=== PATIENT | male | born 1950 | race Caucasian/White ===

== ENCOUNTER 2017-05-30 12:18 | Inpatient (IN) | payer MEDICARE, MEDICAID ==
--- NOTE | 2017-05-30 14:35 | ED Physician Chart ---
ED Chief Complaint/HPI - Patient Information Date Seen:: 05/30/17 Time Seen:: 14:35 Chief Complaint:: AGGITATION IN NURSING FACILITY X 2 DAYS, STRIKING OUT AT OTHER PATIENTS AND History of Present Illness:: THE PATIENT IS CONFUSED, AGITATED AND UNABLE TO PROVIDE RELIABLE HISTORY OF PRESENT ILLNESS. THE PATIENT WAS SENT TO THE EMERGENCY DEPARTMENT FOR CLEARANCE TO ADMIT TO PSYCHIATRIC. IN ADDITION TO BEING CONFUSED THE PATIENT WAS AGITATED AND STRIKING OUT AT OTHER PATIENTS. HE DENIES ANY HEADACHES. HE HAS BEEN HAVING LIGHT HEADEDNESS. 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 IENVIRONMENT. HE HAS NOT NOTICED ANY NOXIOUS FUMES OR SMELLS INITIAL VITAL SIGNS SHOWED ABP OF 64/P6 IG RORR 149 TEMP OF97.7 AN HE DENIES USE OF ETOH, HE DENIES USE OF TOBACO AND STREET DRUGS. Allergies:: Allergies Allergy/AdvReac Type Severity Reaction Status Date / Time No Known Allergies Allergy Verified 05/30/17 13:28 Vitals:: Vital Signs - 8 hr 05/30/17 13:29 Temp 97.7 F HR 58 RR 16 BP 164/96 O2 Sat % 97 ED Review of Systems - Review of Systems General/Constitutional: No fever, No chills, No weakness, No diaphoresis, Other (, DOUBLE VISION, DIFFICULTY BREATHING, COUGH, WHEEZING, NAUSEA, VOMITING. THE PATIENT FURTHER DENIES ANY ABDOMINAL PAIN AND VOMITING OR DIARRHEA. PATIENT HAS NO DYSURIA URINARY FREQUENCY OR HEMATURIA. PATIENT DENIES DEPRESSION AND SUICIDAL IDEATION. PATIENT DENIES SYNCOPE FOCAL WEAKNESS AND DIZZINESS.) Skin: No skin lesions, No rash, No bruising Head: No headache Eyes: No loss of vision, No pain ENT: No earache, No nasal drainage, No sore throat, No tinnitus Neck: No neck pain, No swelling, No thyromegaly, No stiffness, No mass noted Cardio Vascular: No chest pain, No palpitations, No PND, No orthopnea, No edema Pulmonary: No SOB, No cough, No sputum, No wheezing GI: Nausea, No hematemesis G/U: No frequency, No hematuria Musculoskeletal: No bone or joint pain, No back pain, No muscle pain Endocrine: No polyuria, No polydipsia Psychiatric: No suicidal ideation, No homicidal ideation Hematopoietic: No bruising, No lymphadenopathy Allergic/Immuno: No urticaria, No angioedema Neurological: No syncope, No focal symptoms, No weakness, No paresthesia, No headache, No seizure, No dizziness, No confusion, No vertigo ED Past Medical History - Past Medical History Past Medical History: No significant medical hx ( ), HTN, Dyslipidemia Social History: Smoker Family Medical History - Family Member Mother History Unknown: Yes Father History Unknown: Yes ED Physical Exam - Physical Examination General/Constitutional: Awake Head: Atraumatic Eyes: Lids, conjuctiva normal, PERRL, EOMI Skin: Nl inspection, No rash, No skin lesions, No ecchymosis, Well hydrated, No lymphadenopathy ENMT: External ears, nose nl, Nasal exam nl, Lips, teeth, gums nl Neck: Nontender, Full ROM w/o pain, No JVD, No nuchal rigidity, No bruit, No mass, No stridor Respiratory: Nl effort/Exclusion, Clear to Auscultation, No Wheeze/Rhonchi/Rales Cardio Vascular: RRR, No murmur, gallop, rubs, NL S1 S2 GI: No tenderness/rebounding/guarding, No organomegaly, No hernia, Normal BS's, Nondistended, No mass/bruits, No McBurney tenderness : No CVA tenderness Extremities: No tenderness or effusion, Full ROM, normal strength in all extremities, No edema, Normal digits & nails Neuro/Psych: Alert/oriented, DTR's symmetric, Normal sensory exam, Normal motor strength, Judgement/insight normal, Mood normal, Normal gait, No focal deficits Misc: Normal back, No paraspinal tenderness ED Labs/Radiology/EKG Results - Lab Results Results: Laboratory Tests 05/30/17 05/30/17 05/30/17 15:00 15:00 15:00 WBC 8.1 RBC 3.60 L Hgb 11.1 L Hct 33.5 L MCV 93.1 MCH 30.7 MCHC Differential 33.0 RDW 12.4 Plt Count 218 MPV 7.2 Neutrophils % 53.2 Lymphocytes % 38.7 Monocytes % 5.2 Eosinophils % 2.2 Basophils % 0.7 Sodium 131 L Potassium 4.3 Chloride 102 Carbon Dioxide 25.6 Anion Gap 7.7 BUN 22 Creatinine 0.8 Est GFR ( Amer) > 60.0 Est GFR (Non-Af Amer) > 60.0 BUN/Creatinine Ratio 27.5 Glucose 87 Calcium 9.6 Total Bilirubin 0.4 AST 23 ALT 14 Alkaline Phosphatase 53 Total Protein 7.5 Albumin 4.4 Globulin 3.1 Albumin/Globulin Ratio 1.4 Urine Source RANDOM Urine Color YELLOW LABORATORY STUDIES: SERUM ELECTROLYTES SHOWING MILD HYPONATREMIA WITH THE SODIUM OF 131. THERE IS NO ABNORMALITY OF THE OF POTASSIUM AND BUN AND CREATININE ARE WITHIN NORMAL PARAMETERS. LIVER FUNCTION STUDIES WERE ALL WITHIN NORMAL PARAMETERS. Urine Clarity CLEAR Urine pH 6.0 Ur Specific [place] 1.020 Urine Protein NEGATIVE Urine Glucose (UA) NEGATIVE Urine Ketones NEGATIVE Urine Blood NEGATIVE Urine Nitrate NEGATIVE Urine Bilirubin NEGATIVE Urine Urobilinogen 0.2 Ur Leukocyte Esterase NEGATIVE Urine RBC 0-2 H Urine WBC 0-2 Ur Epithelial Cells OCCASIONAL Urine Bacteria NONE SEEN ED Assessment - Assessment General Assessment: CASE SUMMARY: ALL CAPS 67-YEAR-OLD MALE . PRESENTS FOR EVALUATION AGGRESSIVE AND HOSTILE BEHAVIOR FOR OTHER PATIENTS. PATIENT WILL BE ADMITTED BY DR. Brittany KATE FOR FURTHER DIAGNOSTIC EVALUATION AND TREATMENT IS INDICATED. ADMITTED IN STABLE CONDITION DDX FOR AGRESSIVE BEHAVIOR . PSYCHOSIS NOS ED Septic Shock - . Is Septic Shock (SBP<90, OR Lactate>4 mmol\L) present?: No - <6hrs of presentation: Vital Signs: Vital Signs - 8 hr 05/30/17 13:29 Temp 97.7 F HR 58 RR 16 BP 164/96 O2 Sat % 97 ED Reassessment (Disposition) - Reassessment Reassessment Condition:: Unchanged - Diagnosis Diagnosis:: MEDICALLY CLEAR TO ADMIT TO [facility]. Diagnosis: psychosis NOS ED Discharge Plan - Patient Disposition Admit/Discharge/Transfer: Other Care w/in this hosp Condition at Disposition: Stable
[2017-05-30 15:05] LABS: % BASOPHILS 0.7 % (0.0-2.0); % EOSINOPHILS 2.2 % (0.0-5.0); % LYMPHOCYTES 38.7 % (20.0-50.0); % MONOCYTES 5.2 % (2.0-10.0); % NEUTROPHILS 53.2 % (40.0-80.0); BASOPHILE ABSOLUTE 0.1 Th/cumm (0-0.2); EOSINOPHILE ABSOLUTE 0.2 Th/cmm (0.1-0.4); HEMATOCRIT 33.5 % (41.0-60); HEMOGLOBIN 11.1 gm/dL (12-16); LYMPHOCYTE ABSOLUTE 3.1 Th/cmm (1.5-3.0); MEAN CELL VOLUME 93.1 fl (80-99); MEAN CORPUSCULAR HEMOGLOBIN 30.7 pg (27.0-31.0); MEAN PLATELET VOLUME 7.2 fl; MONOCYTE ABSOLUTE 0.4 Th/cmm (0.3-1.0); NEUTROPHILE ABSOLUTE 4.3 Th/cmm (1.8-8.0); PLATELET COUNT 218 Th/cmm (150-400); RED CELL DISTRIBUTION WIDTH 12.4 % (11.5-20.0); WHITE BLOOD COUNT 8.1 Th/cmm (4.8-10.8)
[2017-05-30 15:21] LABS: ALB/GLOB RATIO 1.4 (1.0-1.8); ALBUMIN 4.4 gm/dL (4.2-5.5); ALKALINE PHOSPHATASE 53 U/L (34-104); ANION GAP 7.7 (7.0-16.0); BILIRUBIN,TOTAL 0.4 mg/dL (0.3-1.0); BUN - UREA NITROGEN 22 mg/dL (7-25); CALCIUM SERUM 9.6 mg/dL (8.6-10.3); CARBON DIOXIDE 25.6 mEq/L (21.0-31.0); CHLORIDE 102 mEq/L (98-107); CREATININE - SERUM 0.8 mg/dL (0.7-1.3); GFR AFRICAN-AMERICAN > 60.0 ml/min (>90); GFR NON AFRICAN-AMERICAN > 60.0 ml/min; GLUCOSE 87 mg/dL (70-105); POTASSIUM SERUM 4.3 mEq/L (3.5-5.1); SGOT 23 U/L (13-39); SGPT/ALT 14 U/L (7-52); SODIUM SERUM 131 mEq/L (136-145); TOTAL PROTEIN,SERUM 7.5 gm/dL (6.0-8.3)
[2017-05-30 15:29] LABS: URINE MICROSCOPIC INDICATED? YES; URINE SOURCE RANDOM
[2017-05-30 15:30] LABS: URINE BILIRUBIN NEGATIVE (NEGATIVE); URINE BLOOD NEGATIVE (NEGATIVE); URINE GLUCOSE (UA) NEGATIVE (NEGATIVE); URINE KETONE NEGATIVE (NEGATIVE); URINE LEUKOCYTE ESTERASE NEGATIVE (NEGATIVE); URINE NITRATE NEGATIVE (NEGATIVE); URINE PROTEIN NEGATIVE (NEGATIVE); URINE UROBILINOGEN 0.2 E.U./dL (0.2 - 1.0)
[2017-05-30 15:39] LABS: URINE CLARITY CLEAR (CLEAR); URINE COLOR YELLOW
[2017-05-30 15:40] LABS: URINE BACTERIA NONE SEEN /hpf (NONE SEEN); URINE EPITHELIAL CELLS OCCASIONAL /lpf (FEW); URINE RBC 0-2 /hpf (0-5); URINE WBC 0-2 /hpf (0-5)
[2017-05-30 21:11] VITALS: BP 120/75
[2017-05-30] MEDS ORDERED: Maalox 30 mL Cup PO PRN (21:12)
[2017-05-30] MEDS ORDERED: Magnesium Hydroxide (MOM) 30 mL UDC PO PRN (21:12)
[2017-05-31] MEDS: Multivitamin Tab PO SCH (09:00)
[2017-05-31] MEDS ORDERED: Levothyroxine 0.125 Mg Tab PO SCH ×2 (11:30)
[2017-05-31] MEDS: Levothyroxine 0.05 Mg Tab PO SCH (11:35)
--- NOTE | 2017-05-31 16:25 | History and Physical ---
History of Present Illness - HPI Chief Complaint: agitation HPI: This is a 67 [place]ik[place] old male who is a long term resident admitted to the [facility] unit due to agitation. Vital Signs: Last Vital Signs Temp 98.4 F 05/31/17 06:09 Pulse 56 05/31/17 09:00 Resp 18 05/31/17 06:09 BP 128/58 05/31/17 09:00 Pulse Ox 98 05/31/17 06:09 Past Medical History Other History: htn hypothyroidism psychosis Family Medical History - Family Member Mother History Unknown: Yes Father History Unknown: Yes Social History Smoke: No Alcohol: None Drugs: None Lives: [facility] - Medications Home Medications: Home Medication Medication Instructions Recorded Type Acetaminophen [Tylenol] 650 mg PO Q4HR PRN 05/30/17 History Bicalutamide 50 mg PO DAILY 05/30/17 History Docusate Sodium [Colace] 100 mg PO BID 05/30/17 History Levothyroxine [Synthroid] 0.125 mg PO 1130 05/30/17 History Neomycin Sulfate [Neomycin] 500 mg PO Q6H 05/30/17 History Potassium Chloride 1 tab PO DAILY 05/30/17 History Travoprost [Travatan Z] 1 drop OP HS 05/30/17 History Valsartan 80 mg PO Q12H 05/30/17 History - Allergies Allergies/Adverse Reactions: Allergies Allergy/AdvReac Type Severity Reaction Status Date / Time No Known Allergies Allergy Verified 05/30/17 13:28 Review of Systems - Review of Systems Constitutional: Report: No Significant Eyes: Report: No Significant Respiratory: Report: No Significant Cardiovascular: Report: Chest Pain Neurological: Report: No Significant Physical Exam - Physical Exam HEENT: Report: Ears Nose Throat within normal limits Neck: Report: Within normal limits Cardiovascular Systems: Report: +s1/s2 noted, Regular, Rate and Rhythm Abdomen: Report: Non-tender to palpation Back: Report: Inspection of back is within normal limits. Extremities: Report: Non-tender to palpation. Skin: Report: Color of skin is within normal limits - Assessment Assessment: Current Active Problems Problem Status Onset INCREASED AGITATION AND COMBATIVENESS Acute hypothyroidism htn - Plan Plan: continue current orders
[2017-05-31] MEDS ORDERED: Non-Formulary Item 1 EA (Travoprost [Travatan Z] 1 DROP) OP SCH (21:00)
--- NOTE | 2017-06-01 03:47 | Psychosocial Evaluation ---
DATE OF SERVICE: 05/31/2017 PSYCHIATRIC INITIAL EVALUATION AND MENTAL STATUS EXAM PATIENT'S AGE: 67. SEX: Male. PHYSICIAN: Jean Claude King M.D. CHIEF COMPLAINT: Severe agitation and irritability. HISTORY OF PRESENT ILLNESS: The patient is a 67-year-old male who was transferred from [facility] because of aggressive behavior. The patient has been hitting and striking at staff and other patients. Also, has not been able to follow any of staff directions. The patient also has been in angry and in irritable moods. Also, has been suspicious and has been paranoid. PAST PSYCHIATRIC HISTORY: The patient has history of dementia with psychosis. PAST MEDICAL HISTORY: The patient has history of cirrhosis of the liver as well as renal failure and history of alcoholism. SOCIAL HISTORY: The patient lives in [facility]. No known information about his family. No known legal issues or abuse issues. ALLERGIES: No known allergies. MENTAL STATUS EXAMINATION: The patient appears older than his stated age. Angry. Irritable mood. Disheveled. Thought processes are circumstantial with flight of ideas. The patient denies any auditory or visual hallucinations, but seems to be responding to stimuli. The patient denies any thoughts of suicide or homicide. The patient is alert and oriented to situation, but not to place or person or date. Impaired immediate and recent memory, but intact remote memory and he remembered his date. Poor insight and poor judgment. ASSESSMENT: PRIMARY DIAGNOSIS: Unspecified psychosis. SECONDARY DIAGNOSIS: Alzheimer disease, moderate, with psychotic features. TREATMENT PLAN: Monitor patient's behavior closely. We will start individual as well as milieu psychotherapy. We will start Seroquel in a dose of 12.5 mg twice a day and will adjust the dose. ESTIMATED LENGTH OF STAY: 5-7 days. PATIENT'S STRENGTHS AND WEAKNESSES: The patient's strength is not clear at this time except he has a supportive staff in [facility]. Weakness is his poor impulse control. AFTER DISCHARGE PLAN: The patient will return to [facility] with plans for outpatient treatment and followup. CRITERIA FOR DISCHARGE: Better impulse control and stabilizing psychotropic medications. JOB# [id number]
[2017-06-01] MEDS: Multivitamin Tab PO SCH (08:06)
--- NOTE | 2017-06-01 09:32 | General Progress Note ---
Subjective - Review of Systems Events since last encounter: patient irritable agitated in no distress Objective - Results Result Diagrams: 05/30/17 15:00 05/30/17 15:00 Recent Labs: Laboratory Last Values WBC 8.1 Th/cmm (4.8-10.8) 05/30/17 15:00 RBC 3.60 Mil/cmm (3.80-5.80) L 05/30/17 15:00 Hgb 11.1 gm/dL (12-16) L 05/30/17 15:00 Hct 33.5 % (41.0-60) L 05/30/17 15:00 MCV 93.1 fl (80-99) 05/30/17 15:00 MCH 30.7 pg (27.0-31.0) 05/30/17 15:00 MCHC Differential 33.0 pg (28.0-36.0) 05/30/17 15:00 RDW 12.4 % (11.5-20.0) 05/30/17 15:00 Plt Count 218 Th/cmm (150-400) 05/30/17 15:00 MPV 7.2 fl 05/30/17 15:00 Neutrophils % 53.2 % (40.0-80.0) 05/30/17 15:00 Lymphocytes % 38.7 % (20.0-50.0) 05/30/17 15:00 Monocytes % 5.2 % (2.0-10.0) 05/30/17 15:00 Eosinophils % 2.2 % (0.0-5.0) 05/30/17 15:00 Basophils % 0.7 % (0.0-2.0) 05/30/17 15:00 Sodium 131 mEq/L (136-145) L 05/30/17 15:00 Potassium 4.3 mEq/L (3.5-5.1) 05/30/17 15:00 Chloride 102 mEq/L (98-107) 05/30/17 15:00 Carbon Dioxide 25.6 mEq/L (21.0-31.0) 05/30/17 15:00 Anion Gap 7.7 (7.0-16.0) 05/30/17 15:00 BUN 22 mg/dL (7-25) 05/30/17 15:00 Creatinine 0.8 mg/dL (0.7-1.3) 05/30/17 15:00 Est GFR ( Amer) > 60.0 ml/min (>90) 05/30/17 15:00 Est GFR (Non-Af Amer) > 60.0 ml/min 05/30/17 15:00 BUN/Creatinine Ratio 27.5 05/30/17 15:00 Glucose 87 mg/dL (70-105) 05/30/17 15:00 Calcium 9.6 mg/dL (8.6-10.3) 05/30/17 15:00 Total Bilirubin 0.4 mg/dL (0.3-1.0) 05/30/17 15:00 AST 23 U/L (13-39) 05/30/17 15:00 ALT 14 U/L (7-52) 05/30/17 15:00 Alkaline Phosphatase 53 U/L (34-104) 05/30/17 15:00 Total Protein 7.5 gm/dL (6.0-8.3) 05/30/17 15:00 Albumin 4.4 gm/dL (4.2-5.5) 05/30/17 15:00 Globulin 3.1 gm/dL 05/30/17 15:00 Albumin/Globulin Ratio 1.4 (1.0-1.8) 05/30/17 15:00 Urine Source RANDOM 05/30/17 15:00 Urine Color YELLOW 05/30/17 15:00 Urine Clarity CLEAR (CLEAR) 05/30/17 15:00 Urine pH 6.0 (4.6 - 8.0) 05/30/17 15:00 Ur Specific [place] 1.020 (1.005-1.030) 05/30/17 15:00 Urine Protein NEGATIVE mg/dL (NEGATIVE) 05/30/17 15:00 Urine Glucose (UA) NEGATIVE mg/dL (NEGATIVE) 05/30/17 15:00 Urine Ketones NEGATIVE mg/dL (NEGATIVE) 05/30/17 15:00 Urine Blood NEGATIVE (NEGATIVE) 05/30/17 15:00 Urine Nitrate NEGATIVE (NEGATIVE) 05/30/17 15:00 Urine Bilirubin NEGATIVE (NEGATIVE) 05/30/17 15:00 Urine Urobilinogen 0.2 E.U./dL (0.2 - 1.0) 05/30/17 15:00 Ur Leukocyte Esterase NEGATIVE (NEGATIVE) 05/30/17 15:00 Urine RBC 0-2 /hpf (0-5) H 05/30/17 15:00 Urine WBC 0-2 /hpf (0-5) 05/30/17 15:00 Ur Epithelial Cells OCCASIONAL /lpf (FEW) 05/30/17 15:00 Urine Bacteria NONE SEEN /hpf (NONE SEEN) 05/30/17 15:00 - Physical Exam Vitals and I&O: Vital Signs Temp 98.1 F 06/01/17 05:48 Pulse 65 06/01/17 05:48 Resp 20 06/01/17 05:48 BP 137/66 06/01/17 05:48 Pulse Ox 99 06/01/17 05:48 Intake & Output 05/31/17 06/01/17 06/01/17 18:59 06:59 18:59 Intake Total 240 Balance 240 Weight (lbs) 68.039 kg Intake: Oral 240 Other: # Voids 3 # Bowel Movements 0 Active Medications: Current Medications Acetaminophen (Tylenol) 650 mg PO Q4HR PRN PRN Reason: Mild Pain / Temp above 100 Stop: 07/29/17 21:11 Al Hydrox/Mg Hydrox/Simethicone (Maalox) 30 ml PO Q4HR PRN PRN Reason: GI DISTRESS Stop: 07/29/17 21:11 Bicalutamide (Casodex) 50 mg PO DAILY [facility] PRN Reason: Protocol Stop: 07/30/17 11:59 Last Admin: 05/31/17 14:39 Dose: Not Given Docusate Sodium (Colace) 100 mg PO BID [facility] Stop: 07/30/17 08:59 Last Admin: 06/01/17 08:06 Dose: 100 mg Latanoprost (Xalatan 0.005% Ophth Soln) 1 drop EACH EYE HS [facility] Stop: 07/30/17 20:59 Last Admin: 05/31/17 21:00 Dose: Not Given Levothyroxine Sodium (Synthroid) 0.125 mg PO 1130 [facility] Stop: 07/30/17 11:29 Last Admin: 05/31/17 11:35 Dose: 0.125 mg Lorazepam (Ativan) 0.5 mg PO Q4HR PRN; Protocol PRN Reason: anxiety/agitation Stop: 06/29/17 21:11 Last Admin: 06/01/17 06:46 Dose: 0.5 mg Magnesium Hydroxide (Milk Of Magnesia) 30 ml PO HS PRN PRN Reason: Constipation Multivitamins/Vitamin C (Theragran) 1 tab PO DAILY [facility] Stop: 07/30/17 08:59 Last Admin: 06/01/17 08:06 Dose: 1 tab Neomycin Sulfate (Neomycin) 500 mg PO Q6H [facility] Stop: 07/29/17 21:29 Last Admin: 06/01/17 08:44 Dose: 500 mg Quetiapine Fumarate (Seroquel) 25 mg PO BID [facility] PRN Reason: Protocol Stop: 07/31/17 06:23 Last Admin: 06/01/17 08:05 Dose: 25 mg Valsartan (Diovan) 80 mg PO Q12H [facility] Stop: 07/29/17 21:29 Last Admin: 05/31/17 22:02 Dose: 80 mg Zolpidem Tartrate (Ambien) 5 mg PO HS PRN PRN Reason: Insomnia Stop: 07/29/17 21:11 Assessment/Plan - Problem List Patient Problems: All Active Problems INCREASED AGITATION AND COMBATIVENESS (Acute)
--- NOTE | 2017-06-01 11:16 | Progress Notes ---
DATE: 06/01/2017 SUBJECTIVE: Chart reviewed and the patient interviewed. I also discussed the patient's condition with the staff and reviewed records and labs. "What do you want." The patient is severely angry and in irritable mood and he also seems to be slightly confused. The patient also later on followed me and he did not want to attack me, but he kept asking me what do you want and when I tried to carry on conversation, he did not want to answer any of my questions and he continued to be in angry and restless mood. The patient also seems to be suspicious and severely paranoid. Also, personal hygiene is still poor. Otherwise, the patient did take his psychotropic medications and the patient denied any side effects of medications and no reports of any side effects of Seroquel. The patient is on Seroquel in a dose of 12.5 mg twice a day. ASSESSMENT: The patient is still agitated and psychotic. TREATMENT PLAN: We will continue monitoring his behavior and his condition closely. Also, continue to work on his poor impulse control and irritability and continue to follow up. JOB# [id number]
[2017-06-01] MEDS: Levothyroxine 0.05 Mg Tab PO SCH (12:00)
--- NOTE | 2017-06-02 08:43 | General Progress Note ---
Subjective - Review of Systems Events since last encounter: no change Objective - Results Result Diagrams: 05/30/17 15:00 05/30/17 15:00 Recent Labs: Laboratory Last Values WBC 8.1 Th/cmm (4.8-10.8) 05/30/17 15:00 RBC 3.60 Mil/cmm (3.80-5.80) L 05/30/17 15:00 Hgb 11.1 gm/dL (12-16) L 05/30/17 15:00 Hct 33.5 % (41.0-60) L 05/30/17 15:00 MCV 93.1 fl (80-99) 05/30/17 15:00 MCH 30.7 pg (27.0-31.0) 05/30/17 15:00 MCHC Differential 33.0 pg (28.0-36.0) 05/30/17 15:00 RDW 12.4 % (11.5-20.0) 05/30/17 15:00 Plt Count 218 Th/cmm (150-400) 05/30/17 15:00 MPV 7.2 fl 05/30/17 15:00 Neutrophils % 53.2 % (40.0-80.0) 05/30/17 15:00 Lymphocytes % 38.7 % (20.0-50.0) 05/30/17 15:00 Monocytes % 5.2 % (2.0-10.0) 05/30/17 15:00 Eosinophils % 2.2 % (0.0-5.0) 05/30/17 15:00 Basophils % 0.7 % (0.0-2.0) 05/30/17 15:00 Sodium 131 mEq/L (136-145) L 05/30/17 15:00 Potassium 4.3 mEq/L (3.5-5.1) 05/30/17 15:00 Chloride 102 mEq/L (98-107) 05/30/17 15:00 Carbon Dioxide 25.6 mEq/L (21.0-31.0) 05/30/17 15:00 Anion Gap 7.7 (7.0-16.0) 05/30/17 15:00 BUN 22 mg/dL (7-25) 05/30/17 15:00 Creatinine 0.8 mg/dL (0.7-1.3) 05/30/17 15:00 Est GFR ( Amer) > 60.0 ml/min (>90) 05/30/17 15:00 Est GFR (Non-Af Amer) > 60.0 ml/min 05/30/17 15:00 BUN/Creatinine Ratio 27.5 05/30/17 15:00 Glucose 87 mg/dL (70-105) 05/30/17 15:00 Calcium 9.6 mg/dL (8.6-10.3) 05/30/17 15:00 Total Bilirubin 0.4 mg/dL (0.3-1.0) 05/30/17 15:00 AST 23 U/L (13-39) 05/30/17 15:00 ALT 14 U/L (7-52) 05/30/17 15:00 Alkaline Phosphatase 53 U/L (34-104) 05/30/17 15:00 Total Protein 7.5 gm/dL (6.0-8.3) 05/30/17 15:00 Albumin 4.4 gm/dL (4.2-5.5) 05/30/17 15:00 Globulin 3.1 gm/dL 05/30/17 15:00 Albumin/Globulin Ratio 1.4 (1.0-1.8) 05/30/17 15:00 Urine Source RANDOM 05/30/17 15:00 Urine Color YELLOW 05/30/17 15:00 Urine Clarity CLEAR (CLEAR) 05/30/17 15:00 Urine pH 6.0 (4.6 - 8.0) 05/30/17 15:00 Ur Specific [place] 1.020 (1.005-1.030) 05/30/17 15:00 Urine Protein NEGATIVE mg/dL (NEGATIVE) 05/30/17 15:00 Urine Glucose (UA) NEGATIVE mg/dL (NEGATIVE) 05/30/17 15:00 Urine Ketones NEGATIVE mg/dL (NEGATIVE) 05/30/17 15:00 Urine Blood NEGATIVE (NEGATIVE) 05/30/17 15:00 Urine Nitrate NEGATIVE (NEGATIVE) 05/30/17 15:00 Urine Bilirubin NEGATIVE (NEGATIVE) 05/30/17 15:00 Urine Urobilinogen 0.2 E.U./dL (0.2 - 1.0) 03/19/18 15:00 Ur Leukocyte Esterase NEGATIVE (NEGATIVE) 05/30/17 15:00 Urine RBC 0-2 /hpf (0-5) H 05/30/17 15:00 Urine WBC 0-2 /hpf (0-5) 05/30/17 15:00 Ur Epithelial Cells OCCASIONAL /lpf (FEW) 05/30/17 15:00 Urine Bacteria NONE SEEN /hpf (NONE SEEN) 05/30/17 15:00 - Physical Exam Vitals and I&O: Vital Signs Temp 97.1 F 06/01/17 15:04 Pulse 60 06/01/17 20:49 Resp 20 06/01/17 15:04 BP 118/58 06/01/17 20:49 Pulse Ox 94 06/01/17 15:04 Intake & Output 06/01/17 06/02/17 06/02/17 18:59 06:59 18:59 Intake Total 1200 Balance 1200 Intake: Oral 1200 Other: # Voids 3 Active Medications: Current Medications Acetaminophen (Tylenol) 650 mg PO Q4HR PRN PRN Reason: Mild Pain / Temp above 100 Stop: 07/29/17 21:11 Al Hydrox/Mg Hydrox/Simethicone (Maalox) 30 ml PO Q4HR PRN PRN Reason: GI DISTRESS Stop: 07/29/17 21:11 Bicalutamide (Casodex) 50 mg PO DAILY [facility] PRN Reason: Protocol Stop: 07/30/17 11:59 Last Admin: 06/01/17 10:00 Dose: 50 mg Docusate Sodium (Colace) 100 mg PO BID [facility] Stop: 07/30/17 08:59 Last Admin: 06/01/17 16:48 Dose: 100 mg Latanoprost (Xalatan 0.005% Oph Soln) 1 drop EACH EYE HS [facility] Stop: 07/30/17 20:59 Last Admin: 06/01/17 21:12 Dose: 1 drop Levothyroxine Sodium (Synthroid) 0.125 mg PO 1130 [facility] Stop: 07/30/17 11:29 Last Admin: 06/01/17 12:00 Dose: 0.125 mg Lorazepam (Ativan) 0.5 mg PO Q4HR PRN; Protocol PRN Reason: anxiety/agitation Stop: 06/29/17 21:11 Last Admin: 06/01/17 06:46 Dose: 0.5 mg Magnesium Hydroxide (Milk Of Magnesia) 30 ml PO HS PRN PRN Reason: Constipation Multivitamins/Vitamin C (Theragran) 1 tab PO DAILY [facility] Stop: 07/30/17 08:59 Last Admin: 06/01/17 08:06 Dose: 1 tab Mupirocin (Bactroban Oint) 1 appl NS BID [facility] Stop: 06/06/17 09:01 Last Admin: 06/01/17 16:48 Dose: 1 appl Neomycin Sulfate (Neomycin) 500 mg PO Q6H [facility] Stop: 07/29/17 21:29 Last Admin: 06/02/17 03:00 Dose: Not Given Quetiapine Fumarate (Seroquel) 25 mg PO BID [facility] PRN Reason: Protocol Stop: 07/31/17 06:23 Last Admin: 06/01/17 16:48 Dose: 25 mg Valsartan (Diovan) 80 mg PO Q12H [facility] Stop: 07/29/17 21:29 Last Admin: 06/01/17 20:49 Dose: Not Given Zolpidem Tartrate (Ambien) 5 mg PO HS PRN PRN Reason: Insomnia Stop: 07/29/17 21:11 Assessment/Plan - Problem List Patient Problems: All Active Problems INCREASED AGITATION AND COMBATIVENESS (Acute)
[2017-06-02] MEDS: Multivitamin Tab PO SCH (10:00)
[2017-06-02] MEDS: Levothyroxine 0.05 Mg Tab PO SCH (12:00)
--- NOTE | 2017-06-02 22:41 | Progress Notes ---
DATE: 06/02/2017 PSYCHIATRIC PROGRESS NOTE Chart reviewed and the patient interviewed. Also discussed the patient's condition with the staff and reviewed records and labs. The patient is still angry and is still confused. The patient also is restless. The patient also is severely suspicious and paranoid. The patient also did not sleep most of last night. Otherwise, the patient has continued to comply with taking his medications and the patient is started on Seroquel with no side effects. ASSESSMENT: The patient is still irritable and is still agitated. TREATMENT PLAN: Continue to monitor his behavior and his condition closely. Also, continue to work on his anger and followup. JOB# [id number]
[2017-06-03] MEDS: Multivitamin Tab PO SCH (09:01)
[2017-06-03] MEDS: Levothyroxine 0.05 Mg Tab PO SCH (10:59)
--- NOTE | 2017-06-03 15:26 | Internal Medicine Prog Note ---
Internal Medicine Subjective - Subjective Service Date: 06/03/17 Patient seen and examined:: with staff Patient is:: awake Per staff patient has:: tolerating meds Internal Medicine Objective - Results Result Diagrams: 05/30/17 15:00 05/30/17 15:00 Recent Labs: Laboratory Last Values WBC 8.1 Th/cmm (4.8-10.8) 05/30/17 15:00 RBC 3.60 Mil/cmm (3.80-5.80) L 05/30/17 15:00 Hgb 11.1 gm/dL (12-16) L 05/30/17 15:00 Hct 33.5 % (41.0-60) L 05/30/17 15:00 MCV 93.1 fl (80-99) 05/30/17 15:00 MCH 30.7 pg (27.0-31.0) 05/30/17 15:00 MCHC Differential 33.0 pg (28.0-36.0) 05/30/17 15:00 RDW 12.4 % (11.5-20.0) 05/30/17 15:00 Plt Count 218 Th/cmm (150-400) 05/30/17 15:00 MPV 7.2 fl 05/30/17 15:00 Neutrophils % 53.2 % (40.0-80.0) 05/30/17 15:00 Lymphocytes % 38.7 % (20.0-50.0) 05/30/17 15:00 Monocytes % 5.2 % (2.0-10.0) 05/30/17 15:00 Eosinophils % 2.2 % (0.0-5.0) 05/30/17 15:00 Basophils % 0.7 % (0.0-2.0) 05/30/17 15:00 Sodium 131 mEq/L (136-145) L 05/30/17 15:00 Potassium 4.3 mEq/L (3.5-5.1) 05/30/17 15:00 Chloride 102 mEq/L (98-107) 05/30/17 15:00 Carbon Dioxide 25.6 mEq/L (21.0-31.0) 05/30/17 15:00 Anion Gap 7.7 (7.0-16.0) 05/30/17 15:00 BUN 22 mg/dL (7-25) 05/30/17 15:00 Creatinine 0.8 mg/dL (0.7-1.3) 05/30/17 15:00 Est GFR ( Amer) > 60.0 ml/min (>90) 05/30/17 15:00 Est GFR (Non-Af Amer) > 60.0 ml/min 05/30/17 15:00 BUN/Creatinine Ratio 27.5 05/30/17 15:00 Glucose 87 mg/dL (70-105) 05/30/17 15:00 Calcium 9.6 mg/dL (8.6-10.3) 05/30/17 15:00 Total Bilirubin 0.4 mg/dL (0.3-1.0) 05/30/17 15:00 AST 23 U/L (13-39) 05/30/17 15:00 ALT 14 U/L (7-52) 05/30/17 15:00 Alkaline Phosphatase 53 U/L (34-104) 05/30/17 15:00 Total Protein 7.5 gm/dL (6.0-8.3) 05/30/17 15:00 Albumin 4.4 gm/dL (4.2-5.5) 05/30/17 15:00 Globulin 3.1 gm/dL 05/30/17 15:00 Albumin/Globulin Ratio 1.4 (1.0-1.8) 05/30/17 15:00 Urine Source RANDOM 05/30/17 15:00 Urine Color YELLOW 05/30/17 15:00 Urine Clarity CLEAR (CLEAR) 05/30/17 15:00 Urine pH 6.0 (4.6 - 8.0) 05/30/17 15:00 Ur Specific [place] 1.020 (1.005-1.030) 05/30/17 15:00 Urine Protein NEGATIVE mg/dL (NEGATIVE) 05/30/17 15:00 Urine Glucose (UA) NEGATIVE mg/dL (NEGATIVE) 05/30/17 15:00 Urine Ketones NEGATIVE mg/dL (NEGATIVE) 05/30/17 15:00 Urine Blood NEGATIVE (NEGATIVE) 05/30/17 15:00 Urine Nitrate NEGATIVE (NEGATIVE) 05/30/17 15:00 Urine Bilirubin NEGATIVE (NEGATIVE) 05/30/17 15:00 Urine Urobilinogen 0.2 E.U./dL (0.2 - 1.0) 05/30/17 15:00 Ur Leukocyte Esterase NEGATIVE (NEGATIVE) 05/30/17 15:00 Urine RBC 0-2 /hpf (0-5) H 05/30/17 15:00 Urine WBC 0-2 /hpf (0-5) 05/30/17 15:00 Ur Epithelial Cells OCCASIONAL /lpf (FEW) 05/30/17 15:00 Urine Bacteria NONE SEEN /hpf (NONE SEEN) 05/30/17 15:00 - Physical Exam Vitals and I&O: Vital Signs Temp 98.0 F 06/03/17 14:00 Pulse 69 06/03/17 14:00 Resp 20 06/03/17 14:00 BP 117/63 06/03/17 14:00 Pulse Ox 100 06/03/17 14:00 Intake & Output 06/02/17 06/03/17 06/03/17 18:59 06:59 18:59 Intake Total 1200 Balance 1200 Intake: Oral 1200 Other: # Voids 3 Active Medications: Current Medications Acetaminophen (Tylenol) 650 mg PO Q4HR PRN PRN Reason: Mild Pain / Temp above 100 Stop: 07/29/17 21:11 Al Hydrox/Mg Hydrox/Simethicone (Maalox) 30 ml PO Q4HR PRN PRN Reason: GI DISTRESS Stop: 07/29/17 21:11 Bicalutamide (Casodex) 50 mg PO DAILY [facility] PRN Reason: Protocol Stop: 07/30/17 11:59 Last Admin: 06/03/17 11:04 Dose: 50 mg Docusate Sodium (Colace) 100 mg PO BID [facility] Stop: 07/30/17 08:59 Last Admin: 06/03/17 09:01 Dose: 100 mg Latanoprost (Xalatan 0.005% Ophth Soln) 1 drop EACH EYE HS [facility] Stop: 07/30/17 20:59 Last Admin: 06/02/17 21:49 Dose: Not Given Levothyroxine Sodium (Synthroid) 0.125 mg PO 1130 [facility] Stop: 07/30/17 11:29 Last Admin: 06/03/17 10:59 Dose: 0.125 mg Lorazepam (Ativan) 0.5 mg PO Q4HR PRN; Protocol PRN Reason: anxiety/agitation Stop: 06/29/17 21:11 Last Admin: 06/01/17 06:46 Dose: 0.5 mg Magnesium Hydroxide (Milk Of Magnesia) 30 ml PO HS PRN PRN Reason: Constipation Multivitamins/Vitamin C (Theragran) 1 tab PO DAILY [facility] Stop: 07/30/17 08:59 Last Admin: 06/03/17 09:01 Dose: 1 tab Mupirocin (Bactroban Oint) 1 appl NS BID [facility] Stop: 06/06/17 09:01 Last Admin: 06/03/17 09:09 Dose: Not Given Neomycin Sulfate (Neomycin) 500 mg PO Q6H [facility] Stop: 07/29/17 21:29 Last Admin: 06/03/17 14:40 Dose: 500 mg Quetiapine Fumarate (Seroquel) 37.5 mg PO BID [facility] PRN Reason: Protocol Stop: 08/02/17 06:12 Last Admin: 06/03/17 09:01 Dose: 37.5 mg Valsartan (Diovan) 80 mg PO Q12H [facility] Stop: 07/29/17 21:29 Last Admin: 06/03/17 09:09 Dose: Not Given Zolpidem Tartrate (Ambien) 5 mg PO HS PRN PRN Reason: Insomnia Stop: 07/29/17 21:11 General: alert HEENT: NC/AT, PERRLA Neck: Supple Lungs: CTAB Cardiovascular: RRR, Normal S1, Normal S2 Abdomen: soft, non-tender, non-distended, positive bowel sound Neurological: alert Internal Medicine Assmt/Plan - Assessment Assessment: Current Active Problems Problem Status Onset INCREASED AGITATION AND COMBATIVENESS Acute hypothyroidism htn - Plan Plan: continue current orders
[2017-06-04] MEDS: Multivitamin Tab PO SCH (09:36)
--- NOTE | 2017-06-04 09:50 | Progress Notes ---
DATE: 06/03/2017 SUBJECTIVE: Chart reviewed and the patient interviewed. Also discussed the patient's condition with the staff and reviewed records and labs. The patient is still easily irritable. The patient also is pacing up and down the unit in an irritable and confused state. The patient also has a harsh tone voice and when I tried to talk to him, he still gets angry and is still defensive and paranoid. Also, he is agitated. On the other hand, the patient continued to comply with taking his medications with no side effects of Seroquel. ASSESSMENT: The patient is still psychotic and agitated. TREATMENT PLAN: Continue to monitor his behavior and his condition closely. Also, continue to work on his irritability and poor impulse control. Also, increase Seroquel to 37.5 mg twice a day and will continue to follow up. JOB# [id number]
--- NOTE | 2017-06-04 10:47 | General Progress Note ---
Subjective - Review of Systems Events since last encounter: patient irritable agitated Objective - Results Result Diagrams: 05/30/17 15:00 05/30/17 15:00 Recent Labs: Laboratory Last Values WBC 8.1 Th/cmm (4.8-10.8) 05/30/17 15:00 RBC 3.60 Mil/cmm (3.80-5.80) L 05/30/17 15:00 Hgb 11.1 gm/dL (12-16) L 05/30/17 15:00 Hct 33.5 % (41.0-60) L 05/30/17 15:00 MCV 93.1 fl (80-99) 05/30/17 15:00 MCH 30.7 pg (27.0-31.0) 05/30/17 15:00 MCHC Differential 33.0 pg (28.0-36.0) 05/30/17 15:00 RDW 12.4 % (11.5-20.0) 05/30/17 15:00 Plt Count 218 Th/cmm (150-400) 05/30/17 15:00 MPV 7.2 fl 05/30/17 15:00 Neutrophils % 53.2 % (40.0-80.0) 05/30/17 15:00 Lymphocytes % 38.7 % (20.0-50.0) 05/30/17 15:00 Monocytes % 5.2 % (2.0-10.0) 05/30/17 15:00 Eosinophils % 2.2 % (0.0-5.0) 05/30/17 15:00 Basophils % 0.7 % (0.0-2.0) 05/30/17 15:00 Sodium 131 mEq/L (136-145) L 05/30/17 15:00 Potassium 4.3 mEq/L (3.5-5.1) 05/30/17 15:00 Chloride 102 mEq/L (98-107) 05/30/17 15:00 Carbon Dioxide 25.6 mEq/L (21.0-31.0) 05/30/17 15:00 Anion Gap 7.7 (7.0-16.0) 05/30/17 15:00 BUN 22 mg/dL (7-25) 05/30/17 15:00 Creatinine 0.8 mg/dL (0.7-1.3) 05/30/17 15:00 Est GFR ( Amer) > 60.0 ml/min (>90) 05/30/17 15:00 Est GFR (Non-Af Amer) > 60.0 ml/min 05/30/17 15:00 BUN/Creatinine Ratio 27.5 05/30/17 15:00 Glucose 87 mg/dL (70-105) 05/30/17 15:00 Calcium 9.6 mg/dL (8.6-10.3) 05/30/17 15:00 Total Bilirubin 0.4 mg/dL (0.3-1.0) 05/30/17 15:00 AST 23 U/L (13-39) 05/30/17 15:00 ALT 14 U/L (7-52) 05/30/17 15:00 Alkaline Phosphatase 53 U/L (34-104) 05/30/17 15:00 Total Protein 7.5 gm/dL (6.0-8.3) 05/30/17 15:00 Albumin 4.4 gm/dL (4.2-5.5) 05/30/17 15:00 Globulin 3.1 gm/dL 05/30/17 15:00 Albumin/Globulin Ratio 1.4 (1.0-1.8) 05/30/17 15:00 Urine Source RANDOM 05/30/17 15:00 Urine Color YELLOW 05/30/17 15:00 Urine Clarity CLEAR (CLEAR) 05/30/17 15:00 Urine pH 6.0 (4.6 - 8.0) 05/30/17 15:00 Ur Specific [place] 1.020 (1.005-1.030) 05/30/17 15:00 Urine Protein NEGATIVE mg/dL (NEGATIVE) 05/30/17 15:00 Urine Glucose (UA) NEGATIVE mg/dL (NEGATIVE) 05/30/17 15:00 Urine Ketones NEGATIVE mg/dL (NEGATIVE) 05/30/17 15:00 Urine Blood NEGATIVE (NEGATIVE) 05/30/17 15:00 Urine Nitrate NEGATIVE (NEGATIVE) 05/30/17 15:00 Urine Bilirubin NEGATIVE (NEGATIVE) 05/30/17 15:00 Urine Urobilinogen 0.2 E.U./dL (0.2 - 1.0) 05/30/17 15:00 Ur Leukocyte Esterase NEGATIVE (NEGATIVE) 05/30/17 15:00 Urine RBC 0-2 /hpf (0-5) H 05/30/17 15:00 Urine WBC 0-2 /hpf (0-5) 05/30/17 15:00 Ur Epithelial Cells OCCASIONAL /lpf (FEW) 05/30/17 15:00 Urine Bacteria NONE SEEN /hpf (NONE SEEN) 05/30/17 15:00 - Physical Exam Vitals and I&O: Vital Signs Temp 98.6 F 06/04/17 05:27 Pulse 55 06/04/17 09:39 Resp 20 06/04/17 05:27 BP 113/56 06/04/17 09:39 Pulse Ox 98 06/04/17 05:27 Intake & Output 06/03/17 06/04/17 06/04/17 18:59 06:59 18:59 Intake Total 1200 540 Balance 1200 540 Intake: Oral 540 Other 1200 Other: # Voids 4 1 # Bowel Movements 0 Active Medications: Current Medications Acetaminophen (Tylenol) 650 mg PO Q4HR PRN PRN Reason: Mild Pain / Temp above 100 Stop: 07/29/17 21:11 Al Hydrox/Mg Hydrox/Simethicone (Maalox) 30 ml PO Q4HR PRN PRN Reason: GI DISTRESS Stop: 07/29/17 21:11 Bicalutamide (Casodex) 50 mg PO DAILY [facility] PRN Reason: Protocol Stop: 07/30/17 11:59 Last Admin: 06/04/17 09:36 Dose: 50 mg Docusate Sodium (Colace) 100 mg PO BID [facility] Stop: 07/30/17 08:59 Last Admin: 06/04/17 09:36 Dose: 100 mg Latanoprost (Xalatan 0.005% Ophth Soln) 1 drop EACH EYE HS [facility] Stop: 07/30/17 20:59 Last Admin: 06/03/17 20:30 Dose: 1 drop Levothyroxine Sodium (Synthroid) 0.125 mg PO 1130 [facility] Stop: 07/30/17 11:29 Last Admin: 06/03/17 10:59 Dose: 0.125 mg Lorazepam (Ativan) 0.5 mg PO Q4HR PRN; Protocol PRN Reason: anxiety/agitation Stop: 06/29/17 21:11 Last Admin: 03/21/18 06:46 Dose: 0.5 mg Magnesium Hydroxide (Milk Of Magnesia) 30 ml PO HS PRN PRN Reason: Constipation Multivitamins/Vitamin C (Theragran) 1 tab PO DAILY [facility] Stop: 07/30/17 08:59 Last Admin: 06/04/17 09:36 Dose: 1 tab Mupirocin (Bactroban Oint) 1 appl NS BID [facility] Stop: 06/06/17 09:01 Last Admin: 06/04/17 09:37 Dose: 1 appl Neomycin Sulfate (Neomycin) 500 mg PO Q6H [facility] Stop: 07/29/17 21:29 Last Admin: 06/04/17 09:45 Dose: 500 mg Quetiapine Fumarate (Seroquel) 37.5 mg PO BID [facility] PRN Reason: Protocol Stop: 08/02/17 06:12 Last Admin: 06/04/17 09:37 Dose: 37.5 mg Valsartan (Diovan) 80 mg PO Q12H [facility] Stop: 07/29/17 21:29 Last Admin: 06/04/17 09:39 Dose: Not Given Zolpidem Tartrate (Ambien) 5 mg PO HS PRN PRN Reason: Insomnia Stop: 07/29/17 21:11 Assessment/Plan - Problem List Patient Problems: All Active Problems INCREASED AGITATION AND COMBATIVENESS (Acute) Nutritional Asmnt/Malnutr-PDOC - Dietary Evaluation Malnutrition Findings (Please click <Entered> for more info): Nutritional Asmnt/Malnutrition Start: 06/04/17 10: 21 Text: Status: Complete Freq: Document 06/04/17 10:22 CARLOS (Rec: 06/04/17 10:26 [facility] Nutritional Asmnt/Malnutrition Patient General Information Diagnosis Psychosis Pertinent Medical Hx/Surgical Hx HTN, hypothroidism, psychosis Subjective Information Pt asleep in bed at time of visit Current Diet Order/ Nutrition Support Mechanical soft chopped Pertinent Medications maalox, colace, synthroid, MOM , theragran, neuomycin Pertinent Labs 05/30: Na 131, K 4.3, Cl 103, CO2 25.6, BUN 232, Cr 0.8, Ca 9.6, glucose 87 Nutritional Hx/Data Height 1.78 m Height (Calculated Centimeters) 177.8 Current Weight (lbs) 68.039 kg Weight (Calculated Kilograms) 68.0 Weight (Calculated Grams) 89451.9 Body Mass Index (BMI) 21.5 Weight Status Approriate GI Symptoms GI Symptoms None Last BM none noted Cultural/Ethnic/Sabianist Belief None noted Usual diet at home Unable to report by Pt Skin Integrity/Comment: Stuart score 19, intact Estimated Nutritional Goals BEE in Kcals: Using Current wt Calories/Kcals/Kg 25-30kcals/kg Kcals Calculated 1700-2040kcals/day Protein: Using Current wt Protein g/kg/kg Protein Calculated 68kg/day Fluid: ml 1700-2040ml/day (1ml/kcal) Nutritional Problem No current Nutrition Prob Problem No nutrition diagnosis at this time. Intervention/Recommendation Comments Recommend continuing Mechanical soft chopped diet Expected Outcomes/Goals Expected Outcomes/Goals PO intake >75%
[2017-06-04] MEDS: Levothyroxine 0.05 Mg Tab PO SCH (12:08)
--- NOTE | 2017-06-05 00:14 | Progress Notes ---
DATE: SUBJECTIVE: The patient was seen and evaluated. The patient's chart reviewed. This is Dr. Davis covering for Dr. King. IDENTIFYING DATA: A 67-year-old male transferred from [facility] for aggressive behavior. He is striking staff. Overnight nursing staff reported the patient continues to be disorganized, disengaged. Today on [id number] evaluation, still observed to be disorganized, responding, irritable, pacing, and now verbally aggressive. MENTAL STATUS EXAMINATION: Disorganized psychotic, agitated. ASSESSMENT AND PLAN: ___. His Seroquel was recently increased to 37.5. We will continue with primary psychiatrist treatment plan and goals, which include also Ambien 5 mg, ___, multivitamins, lorazepam as needed. JOB# [id number]
[2017-06-05] MEDS: Multivitamin Tab PO SCH (09:55)
[2017-06-05] MEDS: Potassium Chloride 20 mEq ER Tab PO SCH (09:55)
--- NOTE | 2017-06-05 10:23 | General Progress Note ---
Subjective - Review of Systems Events since last encounter: patient confused irritable otherwise comfortable Objective - Results Result Diagrams: 05/30/17 15:00 05/30/17 15:00 Recent Labs: Laboratory Last Values WBC 8.1 Th/cmm (4.8-10.8) 05/30/17 15:00 RBC 3.60 Mil/cmm (3.80-5.80) L 05/30/17 15:00 Hgb 11.1 gm/dL (12-16) L 05/30/17 15:00 Hct 33.5 % (41.0-60) L 05/30/17 15:00 MCV 93.1 fl (80-99) 05/30/17 15:00 MCH 30.7 pg (27.0-31.0) 05/30/17 15:00 MCHC Differential 33.0 pg (28.0-36.0) 05/30/17 15:00 RDW 12.4 % (11.5-20.0) 05/30/17 15:00 Plt Count 218 Th/cmm (150-400) 05/30/17 15:00 MPV 7.2 fl 05/30/17 15:00 Neutrophils % 53.2 % (40.0-80.0) 05/30/17 15:00 Lymphocytes % 38.7 % (20.0-50.0) 05/30/17 15:00 Monocytes % 5.2 % (2.0-10.0) 05/30/17 15:00 Eosinophils % 2.2 % (0.0-5.0) 05/30/17 15:00 Basophils % 0.7 % (0.0-2.0) 05/30/17 15:00 Sodium 131 mEq/L (136-145) L 05/30/17 15:00 Potassium 4.3 mEq/L (3.5-5.1) 05/30/17 15:00 Chloride 102 mEq/L (98-107) 05/30/17 15:00 Carbon Dioxide 25.6 mEq/L (21.0-31.0) 05/30/17 15:00 Anion Gap 7.7 (7.0-16.0) 05/30/17 15:00 BUN 22 mg/dL (7-25) 05/30/17 15:00 Creatinine 0.8 mg/dL (0.7-1.3) 05/30/17 15:00 Est GFR ( Amer) > 60.0 ml/min (>90) 05/30/17 15:00 Est GFR (Non-Af Amer) > 60.0 ml/min 05/30/17 15:00 BUN/Creatinine Ratio 27.5 05/30/17 15:00 Glucose 87 mg/dL (70-105) 05/30/17 15:00 Calcium 9.6 mg/dL (8.6-10.3) 05/30/17 15:00 Total Bilirubin 0.4 mg/dL (0.3-1.0) 05/30/17 15:00 AST 23 U/L (13-39) 05/30/17 15:00 ALT 14 U/L (7-52) 05/30/17 15:00 Alkaline Phosphatase 53 U/L (34-104) 05/30/17 15:00 Total Protein 7.5 gm/dL (6.0-8.3) 05/30/17 15:00 Albumin 4.4 gm/dL (4.2-5.5) 05/30/17 15:00 Globulin 3.1 gm/dL 05/30/17 15:00 Albumin/Globulin Ratio 1.4 (1.0-1.8) 05/30/17 15:00 Urine Source RANDOM 05/30/17 15:00 Urine Color YELLOW 05/30/17 15:00 Urine Clarity CLEAR (CLEAR) 05/30/17 15:00 Urine pH 6.0 (4.6 - 8.0) 05/30/17 15:00 Ur Specific [place] 1.020 (1.005-1.030) 05/30/17 15:00 Urine Protein NEGATIVE mg/dL (NEGATIVE) 05/30/17 15:00 Urine Glucose (UA) NEGATIVE mg/dL (NEGATIVE) 05/30/17 15:00 Urine Ketones NEGATIVE mg/dL (NEGATIVE) 05/30/17 15:00 Urine Blood NEGATIVE (NEGATIVE) 05/30/17 15:00 Urine Nitrate NEGATIVE (NEGATIVE) 05/30/17 15:00 Urine Bilirubin NEGATIVE (NEGATIVE) 05/30/17 15:00 Urine Urobilinogen 0.2 E.U./dL (0.2 - 1.0) 05/30/17 15:00 Ur Leukocyte Esterase NEGATIVE (NEGATIVE) 05/30/17 15:00 Urine RBC 0-2 /hpf (0-5) H 05/30/17 15:00 Urine WBC 0-2 /hpf (0-5) 05/30/17 15:00 Ur Epithelial Cells OCCASIONAL /lpf (FEW) 05/30/17 15:00 Urine Bacteria NONE SEEN /hpf (NONE SEEN) 05/30/17 15:00 - Physical Exam Vitals and I&O: Vital Signs Temp 0 F 06/05/17 06:04 Pulse 69 06/05/17 10:13 Resp 18 06/04/17 20:40 BP 112/67 06/05/17 10:13 Pulse Ox 98 06/04/17 20:40 Intake & Output 06/04/17 06/05/17 06/05/17 18:59 06:59 18:59 Intake Total 1375 240 Balance 1375 240 Weight (lbs) 68.039 kg Intake: Oral 1375 240 Other: # Voids 3 3 # Bowel Movements 2 0 Weight Source Bedscale Active Medications: Current Medications Acetaminophen (Tylenol) 650 mg PO Q4HR PRN PRN Reason: Mild Pain / Temp above 100 Stop: 07/29/17 21:11 Al Hydrox/Mg Hydrox/Simethicone (Maalox) 30 ml PO Q4HR PRN PRN Reason: GI DISTRESS Stop: 07/29/17 21:11 Bicalutamide (Casodex) 50 mg PO DAILY [facility] PRN Reason: Protocol Stop: 07/30/17 11:59 Last Admin: 06/05/17 09:55 Dose: 50 mg Docusate Sodium (Colace) 100 mg PO BID [facility] Stop: 07/30/17 08:59 Last Admin: 06/05/17 09:55 Dose: 100 mg Latanoprost (Xalatan 0.005% Ophth Soln) 1 drop EACH EYE HS [facility] Stop: 07/30/17 20:59 Last Admin: 06/04/17 21:45 Dose: 1 drop Levothyroxine Sodium (Synthroid) 0.125 mg PO 1130 [facility] Stop: 07/30/17 11:29 Last Admin: 06/04/17 12:08 Dose: 0.125 mg Lorazepam (Ativan) 0.5 mg PO Q4HR PRN; Protocol PRN Reason: anxiety/agitation Stop: 06/29/17 21:11 Last Admin: 06/01/17 06:46 Dose: 0.5 mg Magnesium Hydroxide (Milk Of Magnesia) 30 ml PO HS PRN PRN Reason: Constipation Multivitamins/Vitamin C (Theragran) 1 tab PO DAILY [facility] Stop: 07/30/17 08:59 Last Admin: 06/05/17 09:55 Dose: 1 tab Mupirocin (Bactroban Oint) 1 appl NS BID [facility] Stop: 06/06/17 09:01 Last Admin: 06/05/17 09:55 Dose: 1 appl Neomycin Sulfate (Neomycin) 500 mg PO Q6H [facility] Stop: 07/29/17 21:29 Last Admin: 06/05/17 09:55 Dose: 500 mg Potassium Chloride (Klor-Con) 20 meq PO DAILY [facility] Stop: 08/04/17 08:59 Last Admin: 06/05/17 09:55 Dose: 20 meq Quetiapine Fumarate (Seroquel) 37.5 mg PO BID [facility] PRN Reason: Protocol Stop: 08/02/17 06:12 Last Admin: 06/05/17 09:55 Dose: 37.5 mg Valsartan (Diovan) 80 mg PO Q12H [facility] Stop: 07/29/17 21:29 Last Admin: 06/05/17 10:13 Dose: 80 mg Zolpidem Tartrate (Ambien) 5 mg PO HS PRN PRN Reason: Insomnia Stop: 07/29/17 21:11 Assessment/Plan - Problem List Patient Problems: All Active Problems INCREASED AGITATION AND COMBATIVENESS (Acute) Nutritional Asmnt/Malnutr-PDOC - Dietary Evaluation Malnutrition Findings (Please click <Entered> for more info): Nutritional Asmnt/Malnutrition Start: 06/04/17 10: 21 Text: Status: Complete Freq: Document 06/04/17 10:22 CARLOS (Rec: 06/04/17 10:26 CARLOS ANAYA FN) Nutritional Asmnt/Malnutrition Patient General Information Diagnosis Psychosis Pertinent Medical Hx/Surgical Hx HTN, hypothroidism, psychosis Subjective Information Pt asleep in bed at time of visit Current Diet Order/ Nutrition Support Mechanical soft chopped Pertinent Medications maalox, colace, synthroid, MOM , theragran, neuomycin Pertinent Labs 05/30: Na 131, K 4.3, Cl 103, CO2 25.6, BUN 232, Cr 0.8, Ca 9.6, glucose 87 Nutritional Hx/Data Height 1.78 m Height (Calculated Centimeters) 177.8 Current Weight (lbs) 68.039 kg Weight (Calculated Kilograms) 68.0 Weight (Calculated Grams) 85127.9 Body Mass Index (BMI) 21.5 Weight Status Approriate GI Symptoms GI Symptoms None Last BM none noted Cultural/Ethnic/Oriental Orthodox Belief None noted Usual diet at home Unable to report by Pt Skin Integrity/Comment: Stuart score 19, intact Estimated Nutritional Goals BEE in Kcals: Using Current wt Calories/Kcals/Kg 25-30kcals/kg Kcals Calculated 1700-2040kcals/day Protein: Using Current wt Protein g/kg/kg Protein Calculated 68kg/day Fluid: ml 1700-2040ml/day (1ml/kcal) Nutritional Problem No current Nutrition Prob Problem No nutrition diagnosis at this time. Intervention/Recommendation Comments Recommend continuing Mechanical soft chopped diet Expected Outcomes/Goals Expected Outcomes/Goals PO intake >75%
--- NOTE | 2017-06-05 11:29 | Progress Notes ---
DATE: SUBJECTIVE: The patient was seen and evaluated. The patient's chart reviewed. Overnight nursing staff reported that the patient continued to be easily irritable. Today on [id number] evaluation on approach, the patient starts cursing and yelling at me, disengaged. MENTAL STATUS EXAMINATION: Disorganized, verbally aggressive, agitated. ASSESSMENT AND PLAN: A 67-year-old male with psychotic symptoms. There are easily triggered. Recently Seroquel was increased to 37.5. We will continue with the current medication regimen as he is stilling reaching steady state, to target the patient's residual disorganized, psychotic state. JOB# [id number]
[2017-06-05] MEDS: Levothyroxine 0.05 Mg Tab PO SCH (12:00)
[2017-06-06] MEDS: Potassium Chloride 20 mEq ER Tab PO SCH (09:05)
[2017-06-06] MEDS: Multivitamin Tab PO SCH (09:06)
[2017-06-06] MEDS: Levothyroxine 0.05 Mg Tab PO SCH (14:03)
--- NOTE | 2017-06-06 15:24 | General Progress Note ---
Subjective - Review of Systems Events since last encounter: confused irritable in no distress Objective - Results Result Diagrams: 05/30/17 15:00 05/30/17 15:00 Recent Labs: Laboratory Last Values WBC 8.1 Th/cmm (4.8-10.8) 05/30/17 15:00 RBC 3.60 Mil/cmm (3.80-5.80) L 05/30/17 15:00 Hgb 11.1 gm/dL (12-16) L 05/30/17 15:00 Hct 33.5 % (41.0-60) L 05/30/17 15:00 MCV 93.1 fl (80-99) 05/30/17 15:00 MCH 30.7 pg (27.0-31.0) 05/30/17 15:00 MCHC Differential 33.0 pg (28.0-36.0) 05/30/17 15:00 RDW 12.4 % (11.5-20.0) 05/30/17 15:00 Plt Count 218 Th/cmm (150-400) 05/30/17 15:00 MPV 7.2 fl 05/30/17 15:00 Neutrophils % 53.2 % (40.0-80.0) 05/30/17 15:00 Lymphocytes % 38.7 % (20.0-50.0) 05/30/17 15:00 Monocytes % 5.2 % (2.0-10.0) 05/30/17 15:00 Eosinophils % 2.2 % (0.0-5.0) 05/30/17 15:00 Basophils % 0.7 % (0.0-2.0) 05/30/17 15:00 Sodium 131 mEq/L (136-145) L 05/30/17 15:00 Potassium 4.3 mEq/L (3.5-5.1) 05/30/17 15:00 Chloride 102 mEq/L (98-107) 05/30/17 15:00 Carbon Dioxide 25.6 mEq/L (21.0-31.0) 05/30/17 15:00 Anion Gap 7.7 (7.0-16.0) 05/30/17 15:00 BUN 22 mg/dL (7-25) 05/30/17 15:00 Creatinine 0.8 mg/dL (0.7-1.3) 05/30/17 15:00 Est GFR ( Amer) > 60.0 ml/min (>90) 05/30/17 15:00 Est GFR (Non-Af Amer) > 60.0 ml/min 05/30/17 15:00 BUN/Creatinine Ratio 27.5 05/30/17 15:00 Glucose 87 mg/dL (70-105) 05/30/17 15:00 Calcium 9.6 mg/dL (8.6-10.3) 05/30/17 15:00 Total Bilirubin 0.4 mg/dL (0.3-1.0) 05/30/17 15:00 AST 23 U/L (13-39) 05/30/17 15:00 ALT 14 U/L (7-52) 05/30/17 15:00 Alkaline Phosphatase 53 U/L (34-104) 05/30/17 15:00 Total Protein 7.5 gm/dL (6.0-8.3) 05/30/17 15:00 Albumin 4.4 gm/dL (4.2-5.5) 05/30/17 15:00 Globulin 3.1 gm/dL 05/30/17 15:00 Albumin/Globulin Ratio 1.4 (1.0-1.8) 05/30/17 15:00 Urine Source RANDOM 05/30/17 15:00 Urine Color YELLOW 05/30/17 15:00 Urine Clarity CLEAR (CLEAR) 05/30/17 15:00 Urine pH 6.0 (4.6 - 8.0) 05/30/17 15:00 Ur Specific [place] 1.020 (1.005-1.030) 05/30/17 15:00 Urine Protein NEGATIVE mg/dL (NEGATIVE) 05/30/17 15:00 Urine Glucose (UA) NEGATIVE mg/dL (NEGATIVE) 05/30/17 15:00 Urine Ketones NEGATIVE mg/dL (NEGATIVE) 05/30/17 15:00 Urine Blood NEGATIVE (NEGATIVE) 05/30/17 15:00 Urine Nitrate NEGATIVE (NEGATIVE) 05/30/17 15:00 Urine Bilirubin NEGATIVE (NEGATIVE) 05/30/17 15:00 Urine Urobilinogen 0.2 E.U./dL (0.2 - 1.0) 05/30/17 15:00 Ur Leukocyte Esterase NEGATIVE (NEGATIVE) 05/30/17 15:00 Urine RBC 0-2 /hpf (0-5) H 05/30/17 15:00 Urine WBC 0-2 /hpf (0-5) 05/30/17 15:00 Ur Epithelial Cells OCCASIONAL /lpf (FEW) 05/30/17 15:00 Urine Bacteria NONE SEEN /hpf (NONE SEEN) 05/30/17 15:00 - Physical Exam Vitals and I&O: Vital Signs Temp 97.1 F 06/06/17 06:19 Pulse 61 06/06/17 06:19 Resp 18 06/06/17 06:19 BP 124/67 06/06/17 06:19 Pulse Ox 98 06/06/17 06:19 Intake & Output 06/05/17 06/06/17 06/06/17 18:59 06:59 18:59 Intake Total 0 Balance 0 Intake: Oral 0 Other: # Voids 1 Active Medications: Current Medications Acetaminophen (Tylenol) 650 mg PO Q4HR PRN PRN Reason: Mild Pain / Temp above 100 Stop: 07/29/17 21:11 Al Hydrox/Mg Hydrox/Simethicone (Maalox) 30 ml PO Q4HR PRN PRN Reason: GI DISTRESS Stop: 07/29/17 21:11 Bicalutamide (Casodex) 50 mg PO DAILY [facility] PRN Reason: Protocol Stop: 07/30/17 11:59 Last Admin: 06/06/17 14:03 Dose: Not Given Docusate Sodium (Colace) 100 mg PO BID [facility] Stop: 07/30/17 08:59 Last Admin: 06/06/17 09:06 Dose: 100 mg Latanoprost (Xalatan 0.005% Ophth Soln) 1 drop EACH EYE HS [facility] Stop: 07/30/17 20:59 Last Admin: 06/05/17 21:03 Dose: Not Given Levothyroxine Sodium (Synthroid) 0.125 mg PO 1130 [facility] Stop: 07/30/17 11:29 Last Admin: 06/06/17 14:03 Dose: Not Given Lorazepam (Ativan) 0.5 mg PO Q4HR PRN; Protocol PRN Reason: anxiety/agitation Stop: 06/29/17 21:11 Last Admin: 06/01/17 06:46 Dose: 0.5 mg Magnesium Hydroxide (Milk Of Magnesia) 30 ml PO HS PRN PRN Reason: Constipation Multivitamins/Vitamin C (Theragran) 1 tab PO DAILY [facility] Stop: 07/30/17 08:59 Last Admin: 06/06/17 09:06 Dose: 1 tab Neomycin Sulfate (Neomycin) 500 mg PO Q6H [facility] Stop: 06/06/17 21:29 Last Admin: 06/06/17 09:06 Dose: 500 mg Potassium Chloride (Klor-Con) 20 meq PO DAILY [facility] Stop: 08/04/17 08:59 Last Admin: 06/06/17 09:05 Dose: 20 meq Quetiapine Fumarate (Seroquel) 37.5 mg PO BID [facility] PRN Reason: Protocol Stop: 08/02/17 06:12 Last Admin: 06/06/17 09:05 Dose: 37.5 mg Valsartan (Diovan) 80 mg PO Q12H [facility] Stop: 07/29/17 21:29 Last Admin: 06/06/17 14:03 Dose: Not Given Zolpidem Tartrate (Ambien) 5 mg PO HS PRN PRN Reason: Insomnia Stop: 07/29/17 21:11 Last Admin: 06/05/17 21:04 Dose: 5 mg Assessment/Plan - Problem List Patient Problems: All Active Problems INCREASED AGITATION AND COMBATIVENESS (Acute) Nutritional Asmnt/Malnutr-PDOC - Dietary Evaluation Malnutrition Findings (Please click <Entered> for more info): Nutritional Asmnt/Malnutrition Start: 06/04/17 10: 21 Text: Status: Complete Freq: Document 06/04/17 10:22 CARLOS (Rec: 06/04/17 10:26 [facility] Nutritional Asmnt/Malnutrition Patient General Information Diagnosis Psychosis Pertinent Medical Hx/Surgical Hx HTN, hypothroidism, psychosis Subjective Information Pt asleep in bed at time of visit Current Diet Order/ Nutrition Support Mechanical soft chopped Pertinent Medications maalox, colace, synthroid, MOM , theragran, neuomycin Pertinent Labs 05/30: Na 131, K 4.3, Cl 103, CO2 25.6, BUN 232, Cr 0.8, Ca 9.6, glucose 87 Nutritional Hx/Data Height 1.78 m Height (Calculated Centimeters) 177.8 Current Weight (lbs) 68.039 kg Weight (Calculated Kilograms) 68.0 Weight (Calculated Grams) 15915.9 Body Mass Index (BMI) 21.5 Weight Status Approriate GI Symptoms GI Symptoms None Last BM none noted Cultural/Ethnic/Anglican Belief None noted Usual diet at home Unable to report by Pt Skin Integrity/Comment: Stuart score 19, intact Estimated Nutritional Goals BEE in Kcals: Using Current wt Calories/Kcals/Kg 25-30kcals/kg Kcals Calculated 1700-2040kcals/day Protein: Using Current wt Protein g/kg/kg Protein Calculated 68kg/day Fluid: ml 1700-2040ml/day (1ml/kcal) Nutritional Problem No current Nutrition Prob Problem No nutrition diagnosis at this time. Intervention/Recommendation Comments Recommend continuing Mechanical soft chopped diet Expected Outcomes/Goals Expected Outcomes/Goals PO intake >75%
--- NOTE | 2017-06-06 21:32 | Progress Notes ---
DATE: 06/06/[address] King. Case was discussed with staff of the patient, reviewed records: This is a 67-year-old male, who was transferred from [facility] on 05/30/2017 because of aggressive behavior, has been hitting, striking staff and other patients, has not been able to follow staff direction, angry, irritable, suspicious, and paranoid. The patient so far has been compliant with the medication. Continues to be irritable, suspicious, continues to be unable to follow directions appropriately. However, his agitation is a bit less. He is on Seroquel 37.5 mg twice a day that was increased on 06/03/2017 and no side effects with the medication, no sedation, no nausea, and no extrapyramidal symptoms. We will continue to work with the patient in group therapy, milieu therapy, and adjust the medications as needed. JOB# [id number]
[2017-06-07] MEDS: Multivitamin Tab PO SCH (08:17)
[2017-06-07] MEDS: Potassium Chloride 20 mEq ER Tab PO SCH (08:17)
[2017-06-07] MEDS: Levothyroxine 0.05 Mg Tab PO SCH (12:09)
--- NOTE | 2017-06-07 13:25 | Internal Medicine Prog Note ---
Internal Medicine Subjective - Subjective Service Date: 06/07/17 Patient is:: awake Per staff patient has:: tolerating meds Internal Medicine Objective - Results Result Diagrams: 05/30/17 15:00 05/30/17 15:00 Recent Labs: Laboratory Last Values WBC 8.1 Th/cmm (4.8-10.8) 05/30/17 15:00 RBC 3.60 Mil/cmm (3.80-5.80) L 05/30/17 15:00 Hgb 11.1 gm/dL (12-16) L 05/30/17 15:00 Hct 33.5 % (41.0-60) L 05/30/17 15:00 MCV 93.1 fl (80-99) 05/30/17 15:00 MCH 30.7 pg (27.0-31.0) 05/30/17 15:00 MCHC Differential 33.0 pg (28.0-36.0) 05/30/17 15:00 RDW 12.4 % (11.5-20.0) 05/30/17 15:00 Plt Count 218 Th/cmm (150-400) 05/30/17 15:00 MPV 7.2 fl 05/30/17 15:00 Neutrophils % 53.2 % (40.0-80.0) 05/30/17 15:00 Lymphocytes % 38.7 % (20.0-50.0) 05/30/17 15:00 Monocytes % 5.2 % (2.0-10.0) 05/30/17 15:00 Eosinophils % 2.2 % (0.0-5.0) 05/30/17 15:00 Basophils % 0.7 % (0.0-2.0) 05/30/17 15:00 Sodium 131 mEq/L (136-145) L 05/30/17 15:00 Potassium 4.3 mEq/L (3.5-5.1) 05/30/17 15:00 Chloride 102 mEq/L (98-107) 05/30/17 15:00 Carbon Dioxide 25.6 mEq/L (21.0-31.0) 05/30/17 15:00 Anion Gap 7.7 (7.0-16.0) 05/30/17 15:00 BUN 22 mg/dL (7-25) 05/30/17 15:00 Creatinine 0.8 mg/dL (0.7-1.3) 05/30/17 15:00 Est GFR ( Amer) > 60.0 ml/min (>90) 05/30/17 15:00 Est GFR (Non-Af Amer) > 60.0 ml/min 05/30/17 15:00 BUN/Creatinine Ratio 27.5 05/30/17 15:00 Glucose 87 mg/dL (70-105) 05/30/17 15:00 Calcium 9.6 mg/dL (8.6-10.3) 05/30/17 15:00 Total Bilirubin 0.4 mg/dL (0.3-1.0) 05/30/17 15:00 AST 23 U/L (13-39) 05/30/17 15:00 ALT 14 U/L (7-52) 05/30/17 15:00 Alkaline Phosphatase 53 U/L (34-104) 05/30/17 15:00 Total Protein 7.5 gm/dL (6.0-8.3) 05/30/17 15:00 Albumin 4.4 gm/dL (4.2-5.5) 05/30/17 15:00 Globulin 3.1 gm/dL 05/30/17 15:00 Albumin/Globulin Ratio 1.4 (1.0-1.8) 05/30/17 15:00 Urine Source RANDOM 05/30/17 15:00 Urine Color YELLOW 05/30/17 15:00 Urine Clarity CLEAR (CLEAR) 05/30/17 15:00 Urine pH 6.0 (4.6 - 8.0) 05/30/17 15:00 Ur Specific [place] 1.020 (1.005-1.030) 05/30/17 15:00 Urine Protein NEGATIVE mg/dL (NEGATIVE) 05/30/17 15:00 Urine Glucose (UA) NEGATIVE mg/dL (NEGATIVE) 05/30/17 15:00 Urine Ketones NEGATIVE mg/dL (NEGATIVE) 05/30/17 15:00 Urine Blood NEGATIVE (NEGATIVE) 05/30/17 15:00 Urine Nitrate NEGATIVE (NEGATIVE) 05/30/17 15:00 Urine Bilirubin NEGATIVE (NEGATIVE) 05/30/17 15:00 Urine Urobilinogen 0.2 E.U./dL (0.2 - 1.0) 05/30/17 15:00 Ur Leukocyte Esterase NEGATIVE (NEGATIVE) 05/30/17 15:00 Urine RBC 0-2 /hpf (0-5) H 05/30/17 15:00 Urine WBC 0-2 /hpf (0-5) 05/30/17 15:00 Ur Epithelial Cells OCCASIONAL /lpf (FEW) 05/30/17 15:00 Urine Bacteria NONE SEEN /hpf (NONE SEEN) 05/30/17 15:00 - Physical Exam Vitals and I&O: Vital Signs Temp 98.1 F 06/07/17 05:44 Pulse 56 06/07/17 05:44 Resp 19 06/07/17 05:44 BP 119/61 06/06/17 21:54 Pulse Ox 98 06/07/17 05:44 Intake & Output 06/06/17 06/07/17 06/07/17 18:59 06:59 18:59 Intake Total 240 Balance 240 Intake: Oral 240 Other: # Voids 1 Active Medications: Current Medications Acetaminophen (Tylenol) 650 mg PO Q4HR PRN PRN Reason: Mild Pain / Temp above 100 Stop: 07/29/17 21:11 Al Hydrox/Mg Hydrox/Simethicone (Maalox) 30 ml PO Q4HR PRN PRN Reason: GI DISTRESS Stop: 07/29/17 21:11 Bicalutamide (Casodex) 50 mg PO DAILY [facility] PRN Reason: Protocol Stop: 07/30/17 11:59 Last Admin: 06/07/17 08:17 Dose: 50 mg Docusate Sodium (Colace) 100 mg PO BID [facility] Stop: 07/30/17 08:59 Last Admin: 06/07/17 08:17 Dose: 100 mg Latanoprost (Xalatan 0.005% Ophth Soln) 1 drop EACH EYE HS [facility] Stop: 07/30/17 20:59 Last Admin: 06/06/17 21:58 Dose: 1 drop Levothyroxine Sodium (Synthroid) 0.125 mg PO 1130 [facility] Stop: 07/30/17 11:29 Last Admin: 06/07/17 12:09 Dose: 0.125 mg Lorazepam (Ativan) 0.5 mg PO Q4HR PRN; Protocol PRN Reason: anxiety/agitation Stop: 06/29/17 21:11 Last Admin: 06/01/17 06:46 Dose: 0.5 mg Magnesium Hydroxide (Milk Of Magnesia) 30 ml PO HS PRN PRN Reason: Constipation Multivitamins/Vitamin C (Theragran) 1 tab PO DAILY [facility] Stop: 07/30/17 08:59 Last Admin: 06/07/17 08:17 Dose: 1 tab Potassium Chloride (Klor-Con) 20 meq PO DAILY [facility] Stop: 08/04/17 08:59 Last Admin: 06/07/17 08:17 Dose: 20 meq Quetiapine Fumarate (Seroquel) 37.5 mg PO BID [facility] PRN Reason: Protocol Stop: 08/02/17 06:12 Last Admin: 06/07/17 08:16 Dose: 37.5 mg Valsartan (Diovan) 80 mg PO Q12H [facility] Stop: 07/29/17 21:29 Last Admin: 06/07/17 10:12 Dose: Not Given Zolpidem Tartrate (Ambien) 5 mg PO HS PRN PRN Reason: Insomnia Stop: 07/29/17 21:11 Last Admin: 06/05/17 21:04 Dose: 5 mg General: alert HEENT: NC/AT, PERRLA Neck: Supple Lungs: CTAB Cardiovascular: RRR, Normal S1, Normal S2 Abdomen: soft, non-tender, non-distended, positive bowel sound Neurological: alert Internal Medicine Assmt/Plan - Assessment Assessment: Current Active Problems Problem Status Onset INCREASED AGITATION AND COMBATIVENESS Acute hypothyroidism htn - Plan Plan: continue current orders Nutritional Asmnt/Malnutr-PDOC - Dietary Evaluation Malnutrition Findings (Please click <Entered> for more info): Nutritional Asmnt/Malnutrition Start: 06/04/17 10: 21 Text: Status: Complete Freq: Document 06/04/17 10:22 CARLOS (Rec: 06/04/17 10:26 CARLOS [facility]) Nutritional Asmnt/Malnutrition Patient General Information Diagnosis Psychosis Pertinent Medical Hx/Surgical Hx HTN, hypothroidism, psychosis Subjective Information Pt asleep in bed at time of visit Current Diet Order/ Nutrition Support Mechanical soft chopped Pertinent Medications maalox, colace, synthroid, MOM , theragran, neuomycin Pertinent Labs 05/30: Na 131, K 4.3, Cl 103, CO2 25.6, BUN 232, Cr 0.8, Ca 9.6, glucose 87 Nutritional Hx/Data Height 5 ft 10 in Height (Calculated Centimeters) 177.8 Current Weight (lbs) 150 lb Weight (Calculated Kilograms) 68.0 Weight (Calculated Grams) 94092.9 Body Mass Index (BMI) 21.5 Weight Status Approriate GI Symptoms GI Symptoms None Last BM none noted Cultural/Ethnic/Congregation Belief None noted Usual diet at home Unable to report by Pt Skin Integrity/Comment: Stuart score 19, intact Estimated Nutritional Goals BEE in Kcals: Using Current wt Calories/Kcals/Kg 25-30kcals/kg Kcals Calculated 1700-2040kcals/day Protein: Using Current wt Protein g/kg/kg Protein Calculated 68kg/day Fluid: ml 1700-2040ml/day (1ml/kcal) Nutritional Problem No current Nutrition Prob Problem No nutrition diagnosis at this time. Intervention/Recommendation Comments Recommend continuing Mechanical soft chopped diet Expected Outcomes/Goals Expected Outcomes/Goals PO intake >75%
--- NOTE | 2017-06-07 23:05 | Progress Notes ---
DATE: 06/07/2017 SUBJECTIVE: Case was discussed with the staff of the patient and reviewed records. The patient continues to be unpredictable, impulsive, confused, unable to make safe plan for his self-care. He tolerated the increase in Seroquel with no side effect. He is compliant with the medications. No side effects with the medication, no sedation, no nausea, no extrapyramidal symptoms. PLAN: We will continue to work with the patient in group therapy, milieu therapy, and adjust medications as needed. JOB# [id number]
[2017-06-08] MEDS: Potassium Chloride 20 mEq ER Tab PO SCH (08:30)
[2017-06-08] MEDS: Multivitamin Tab PO SCH (08:31)
[2017-06-08] MEDS: Levothyroxine 0.05 Mg Tab PO SCH (10:52)
--- NOTE | 2017-06-08 11:13 | General Progress Note ---
Subjective - Review of Systems Events since last encounter: in no distress patient awake alert Objective - Results Result Diagrams: 05/30/17 15:00 05/30/17 15:00 Recent Labs: Laboratory Last Values WBC 8.1 Th/cmm (4.8-10.8) 05/30/17 15:00 RBC 3.60 Mil/cmm (3.80-5.80) L 05/30/17 15:00 Hgb 11.1 gm/dL (12-16) L 05/30/17 15:00 Hct 33.5 % (41.0-60) L 05/30/17 15:00 MCV 93.1 fl (80-99) 05/30/17 15:00 MCH 30.7 pg (27.0-31.0) 05/30/17 15:00 MCHC Differential 33.0 pg (28.0-36.0) 05/30/17 15:00 RDW 12.4 % (11.5-20.0) 05/30/17 15:00 Plt Count 218 Th/cmm (150-400) 05/30/17 15:00 MPV 7.2 fl 05/30/17 15:00 Neutrophils % 53.2 % (40.0-80.0) 05/30/17 15:00 Lymphocytes % 38.7 % (20.0-50.0) 05/30/17 15:00 Monocytes % 5.2 % (2.0-10.0) 05/30/17 15:00 Eosinophils % 2.2 % (0.0-5.0) 05/30/17 15:00 Basophils % 0.7 % (0.0-2.0) 05/30/17 15:00 Sodium 131 mEq/L (136-145) L 05/30/17 15:00 Potassium 4.3 mEq/L (3.5-5.1) 05/30/17 15:00 Chloride 102 mEq/L (98-107) 05/30/17 15:00 Carbon Dioxide 25.6 mEq/L (21.0-31.0) 05/30/17 15:00 Anion Gap 7.7 (7.0-16.0) 05/30/17 15:00 BUN 22 mg/dL (7-25) 05/30/17 15:00 Creatinine 0.8 mg/dL (0.7-1.3) 05/30/17 15:00 Est GFR ( Amer) > 60.0 ml/min (>90) 05/30/17 15:00 Est GFR (Non-Af Amer) > 60.0 ml/min 05/30/17 15:00 BUN/Creatinine Ratio 27.5 05/30/17 15:00 Glucose 87 mg/dL (70-105) 05/30/17 15:00 Calcium 9.6 mg/dL (8.6-10.3) 05/30/17 15:00 Total Bilirubin 0.4 mg/dL (0.3-1.0) 05/30/17 15:00 AST 23 U/L (13-39) 05/30/17 15:00 ALT 14 U/L (7-52) 05/30/17 15:00 Alkaline Phosphatase 53 U/L (34-104) 05/30/17 15:00 Total Protein 7.5 gm/dL (6.0-8.3) 05/30/17 15:00 Albumin 4.4 gm/dL (4.2-5.5) 05/30/17 15:00 Globulin 3.1 gm/dL 05/30/17 15:00 Albumin/Globulin Ratio 1.4 (1.0-1.8) 05/30/17 15:00 Urine Source RANDOM 05/30/17 15:00 Urine Color YELLOW 05/30/17 15:00 Urine Clarity CLEAR (CLEAR) 05/30/17 15:00 Urine pH 6.0 (4.6 - 8.0) 05/30/17 15:00 Ur Specific [place] 1.020 (1.005-1.030) 05/30/17 15:00 Urine Protein NEGATIVE mg/dL (NEGATIVE) 05/30/17 15:00 Urine Glucose (UA) NEGATIVE mg/dL (NEGATIVE) 05/30/17 15:00 Urine Ketones NEGATIVE mg/dL (NEGATIVE) 05/30/17 15:00 Urine Blood NEGATIVE (NEGATIVE) 05/30/17 15:00 Urine Nitrate NEGATIVE (NEGATIVE) 05/30/17 15:00 Urine Bilirubin NEGATIVE (NEGATIVE) 05/30/17 15:00 Urine Urobilinogen 0.2 E.U./dL (0.2 - 1.0) 05/30/17 15:00 Ur Leukocyte Esterase NEGATIVE (NEGATIVE) 05/30/17 15:00 Urine RBC 0-2 /hpf (0-5) H 05/30/17 15:00 Urine WBC 0-2 /hpf (0-5) 05/30/17 15:00 Ur Epithelial Cells OCCASIONAL /lpf (FEW) 05/30/17 15:00 Urine Bacteria NONE SEEN /hpf (NONE SEEN) 05/30/17 15:00 - Physical Exam Vitals and I&O: Vital Signs Temp 98.5 F 06/08/17 05:53 Pulse 115 06/08/17 08:31 Resp 20 06/08/17 05:53 BP 137/98 06/08/17 08:31 Pulse Ox 99 06/08/17 05:53 Intake & Output 06/07/17 06/08/17 06/08/17 18:59 06:59 18:59 Intake Total 200 Balance 200 Intake: Oral 200 Other: # Voids 2 # Bowel Movements 0 Active Medications: Current Medications Acetaminophen (Tylenol) 650 mg PO Q4HR PRN PRN Reason: Mild Pain / Temp above 100 Stop: 07/29/17 21:11 Al Hydrox/Mg Hydrox/Simethicone (Maalox) 30 ml PO Q4HR PRN PRN Reason: GI DISTRESS Stop: 07/29/17 21:11 Bicalutamide (Casodex) 50 mg PO DAILY [facility] PRN Reason: Protocol Stop: 07/30/17 11:59 Last Admin: 06/08/17 08:31 Dose: 50 mg Docusate Sodium (Colace) 100 mg PO BID [facility] Stop: 07/30/17 08:59 Last Admin: 06/08/17 08:31 Dose: 100 mg Latanoprost (Xalatan 0.005% Ophth Soln) 1 drop EACH EYE HS [facility] Stop: 07/30/17 20:59 Last Admin: 06/07/17 21:35 Dose: 1 drop Levothyroxine Sodium (Synthroid) 0.125 mg PO 1130 [facility] Stop: 07/30/17 11:29 Last Admin: 06/08/17 10:52 Dose: 0.125 mg Lorazepam (Ativan) 0.5 mg PO Q4HR PRN; Protocol PRN Reason: anxiety/agitation Stop: 06/29/17 21:11 Last Admin: 06/01/17 06:46 Dose: 0.5 mg Magnesium Hydroxide (Milk Of Magnesia) 30 ml PO HS PRN PRN Reason: Constipation Multivitamins/Vitamin C (Theragran) 1 tab PO DAILY [facility] Stop: 07/30/17 08:59 Last Admin: 06/08/17 08:31 Dose: 1 tab Potassium Chloride (Klor-Con) 20 meq PO DAILY [facility] Stop: 08/04/17 08:59 Last Admin: 06/08/17 08:30 Dose: 20 meq Quetiapine Fumarate (Seroquel) 37.5 mg PO BID [facility] PRN Reason: Protocol Stop: 08/02/17 06:12 Last Admin: 06/08/17 08:30 Dose: 37.5 mg Valsartan (Diovan) 80 mg PO Q12H [facility] Stop: 07/29/17 21:29 Last Admin: 06/08/17 08:31 Dose: 80 mg Zolpidem Tartrate (Ambien) 5 mg PO HS PRN PRN Reason: Insomnia Stop: 07/29/17 21:11 Last Admin: 06/05/17 21:04 Dose: 5 mg General: No acute distress HEENT: Atraumatic Neck: Supple, JVD Cardiovascular: Regular rate, Normal S1, Normal S2 Abdomen: Bowel sounds Assessment/Plan - Problem List Patient Problems: All Active Problems HTN (hypertension) (Acute) I10 Hypothyroidism (Acute) E03.9 INCREASED AGITATION AND COMBATIVENESS (Acute) - Plan Plan: cpm Nutritional Asmnt/Malnutr-PDOC - Dietary Evaluation Malnutrition Findings (Please click <Entered> for more info): Nutritional Asmnt/Malnutrition Start: 06/04/17 10: 21 Text: Status: Complete Freq: Document 06/04/17 10:22 CARLOS (Rec: 06/04/17 10:26 [facility] Nutritional Asmnt/Malnutrition Patient General Information Diagnosis Psychosis Pertinent Medical Hx/Surgical Hx HTN, hypothroidism, psychosis Subjective Information Pt asleep in bed at time of visit Current Diet Order/ Nutrition Support Mechanical soft chopped Pertinent Medications maalox, colace, synthroid, MOM , theragran, neuomycin Pertinent Labs 05/30: Na 131, K 4.3, Cl 103, CO2 25.6, BUN 232, Cr 0.8, Ca 9.6, glucose 87 Nutritional Hx/Data Height 1.78 m Height (Calculated Centimeters) 177.8 Current Weight (lbs) 68.039 kg Weight (Calculated Kilograms) 68.0 Weight (Calculated Grams) 27022.9 Body Mass Index (BMI) 21.5 Weight Status Approriate GI Symptoms GI Symptoms None Last BM none noted Cultural/Ethnic/Voodoo Belief None noted Usual diet at home Unable to report by Pt Skin Integrity/Comment: Stuart score 19, intact Estimated Nutritional Goals BEE in Kcals: Using Current wt Calories/Kcals/Kg 25-30kcals/kg Kcals Calculated 1700-2040kcals/day Protein: Using Current wt Protein g/kg/kg Protein Calculated 68kg/day Fluid: ml 1700-2040ml/day (1ml/kcal) Nutritional Problem No current Nutrition Prob Problem No nutrition diagnosis at this time. Intervention/Recommendation Comments Recommend continuing Mechanical soft chopped diet Expected Outcomes/Goals Expected Outcomes/Goals PO intake >75%
--- NOTE | 2017-06-08 22:18 | Progress Notes ---
DATE: Chart reviewed and the patient interviewed. Also discussed the patient's condition with the staff and reviewed records and labs. The patient is calm and he seems to be more cooperative. Still has moments of confusion but it does not last long. He is still suspicious and is still paranoid. Otherwise, the patient is compliant with taking his medications with no side effects of medications. ASSESSMENT: The patient is still confused and needs close observation. TREATMENT PLAN: We will continue monitoring his behavior and his condition closely. Also, continue Seroquel same dose and we will continue to follow up closely. JOB# [id number]
[2017-06-09] MEDS: Potassium Chloride 20 mEq ER Tab PO SCH (10:00)
[2017-06-09] MEDS: Multivitamin Tab PO SCH (10:00)
--- NOTE | 2017-06-09 11:45 | General Progress Note ---
Subjective - Review of Systems Events since last encounter: in no distress still confused Objective - Results Result Diagrams: 05/30/17 15:00 05/30/17 15:00 Recent Labs: Laboratory Last Values WBC 8.1 Th/cmm (4.8-10.8) 05/30/17 15:00 RBC 3.60 Mil/cmm (3.80-5.80) L 05/30/17 15:00 Hgb 11.1 gm/dL (12-16) L 05/30/17 15:00 Hct 33.5 % (41.0-60) L 05/30/17 15:00 MCV 93.1 fl (80-99) 05/30/17 15:00 MCH 30.7 pg (27.0-31.0) 05/30/17 15:00 MCHC Differential 33.0 pg (28.0-36.0) 05/30/17 15:00 RDW 12.4 % (11.5-20.0) 05/30/17 15:00 Plt Count 218 Th/cmm (150-400) 05/30/17 15:00 MPV 7.2 fl 05/30/17 15:00 Neutrophils % 53.2 % (40.0-80.0) 05/30/17 15:00 Lymphocytes % 38.7 % (20.0-50.0) 05/30/17 15:00 Monocytes % 5.2 % (2.0-10.0) 05/30/17 15:00 Eosinophils % 2.2 % (0.0-5.0) 05/30/17 15:00 Basophils % 0.7 % (0.0-2.0) 05/30/17 15:00 Sodium 131 mEq/L (136-145) L 05/30/17 15:00 Potassium 4.3 mEq/L (3.5-5.1) 05/30/17 15:00 Chloride 102 mEq/L (98-107) 05/30/17 15:00 Carbon Dioxide 25.6 mEq/L (21.0-31.0) 05/30/17 15:00 Anion Gap 7.7 (7.0-16.0) 05/30/17 15:00 BUN 22 mg/dL (7-25) 05/30/17 15:00 Creatinine 0.8 mg/dL (0.7-1.3) 05/30/17 15:00 Est GFR ( Amer) > 60.0 ml/min (>90) 05/30/17 15:00 Est GFR (Non-Af Amer) > 60.0 ml/min 05/30/17 15:00 BUN/Creatinine Ratio 27.5 05/30/17 15:00 Glucose 87 mg/dL (70-105) 05/30/17 15:00 Calcium 9.6 mg/dL (8.6-10.3) 05/30/17 15:00 Total Bilirubin 0.4 mg/dL (0.3-1.0) 05/30/17 15:00 AST 23 U/L (13-39) 05/30/17 15:00 ALT 14 U/L (7-52) 05/30/17 15:00 Alkaline Phosphatase 53 U/L (34-104) 05/30/17 15:00 Total Protein 7.5 gm/dL (6.0-8.3) 05/30/17 15:00 Albumin 4.4 gm/dL (4.2-5.5) 05/30/17 15:00 Globulin 3.1 gm/dL 05/30/17 15:00 Albumin/Globulin Ratio 1.4 (1.0-1.8) 05/30/17 15:00 Urine Source RANDOM 05/30/17 15:00 Urine Color YELLOW 05/30/17 15:00 Urine Clarity CLEAR (CLEAR) 05/30/17 15:00 Urine pH 6.0 (4.6 - 8.0) 05/30/17 15:00 Ur Specific [place] 1.020 (1.005-1.030) 05/30/17 15:00 Urine Protein NEGATIVE mg/dL (NEGATIVE) 05/30/17 15:00 Urine Glucose (UA) NEGATIVE mg/dL (NEGATIVE) 05/30/17 15:00 Urine Ketones NEGATIVE mg/dL (NEGATIVE) 05/30/17 15:00 Urine Blood NEGATIVE (NEGATIVE) 05/30/17 15:00 Urine Nitrate NEGATIVE (NEGATIVE) 05/30/17 15:00 Urine Bilirubin NEGATIVE (NEGATIVE) 05/30/17 15:00 Urine Urobilinogen 0.2 E.U./dL (0.2 - 1.0) 05/30/17 15:00 Ur Leukocyte Esterase NEGATIVE (NEGATIVE) 05/30/17 15:00 Urine RBC 0-2 /hpf (0-5) H 05/30/17 15:00 Urine WBC 0-2 /hpf (0-5) 05/30/17 15:00 Ur Epithelial Cells OCCASIONAL /lpf (FEW) 05/30/17 15:00 Urine Bacteria NONE SEEN /hpf (NONE SEEN) 05/30/17 15:00 - Physical Exam Vitals and I&O: Vital Signs Temp 97.7 F 06/09/17 06:06 Pulse 65 06/09/17 10:20 Resp 18 06/09/17 06:06 BP 125/69 06/09/17 10:20 Pulse Ox 97 06/09/17 06:06 Intake & Output 06/08/17 06/09/17 06/09/17 18:59 06:59 18:59 Intake Total 1200 240 Balance 1200 240 Intake: Oral 1200 240 Other: # Voids 3 1 Active Medications: Current Medications Acetaminophen (Tylenol) 650 mg PO Q4HR PRN PRN Reason: Mild Pain / Temp above 100 Stop: 07/29/17 21:11 Al Hydrox/Mg Hydrox/Simethicone (Maalox) 30 ml PO Q4HR PRN PRN Reason: GI DISTRESS Stop: 07/29/17 21:11 Bicalutamide (Casodex) 50 mg PO DAILY [facility] PRN Reason: Protocol Stop: 07/30/17 11:59 Last Admin: 06/09/17 10:00 Dose: 50 mg Docusate Sodium (Colace) 100 mg PO BID [facility] Stop: 07/30/17 08:59 Last Admin: 06/09/17 10:00 Dose: 100 mg Latanoprost (Xalatan 0.005% Ophth Soln) 1 drop EACH EYE HS [facility] Stop: 07/30/17 20:59 Last Admin: 06/08/17 21:25 Dose: 1 drop Levothyroxine Sodium (Synthroid) 0.125 mg PO 1130 [facility] Stop: 07/30/17 11:29 Last Admin: 06/08/17 10:52 Dose: 0.125 mg Lorazepam (Ativan) 0.5 mg PO Q4HR PRN; Protocol PRN Reason: anxiety/agitation Stop: 06/29/17 21:11 Last Admin: 06/01/17 06:46 Dose: 0.5 mg Magnesium Hydroxide (Milk Of Magnesia) 30 ml PO HS PRN PRN Reason: Constipation Multivitamins/Vitamin C (Theragran) 1 tab PO DAILY [facility] Stop: 07/30/17 08:59 Last Admin: 06/09/17 10:00 Dose: 1 tab Potassium Chloride (Klor-Con) 20 meq PO DAILY [facility] Stop: 08/04/17 08:59 Last Admin: 06/09/17 10:00 Dose: 20 meq Quetiapine Fumarate (Seroquel) 50 mg PO BID [facility] PRN Reason: Protocol Stop: 08/08/17 06:41 Last Admin: 06/09/17 10:00 Dose: 50 mg Valsartan (Diovan) 80 mg PO Q12H [facility] Stop: 07/29/17 21:29 Last Admin: 06/09/17 10:20 Dose: 80 mg Zolpidem Tartrate (Ambien) 5 mg PO HS PRN PRN Reason: Insomnia Stop: 07/29/17 21:11 Last Admin: 06/05/17 21:04 Dose: 5 mg General: No acute distress HEENT: Atraumatic Neck: Supple, JVD Cardiovascular: Regular rate, Normal S1, Normal S2 Abdomen: Bowel sounds Assessment/Plan - Problem List Patient Problems: All Active Problems HTN (hypertension) (Acute) I10 Hypothyroidism (Acute) E03.9 INCREASED AGITATION AND COMBATIVENESS (Acute) - Plan Plan: cpm Nutritional Asmnt/Malnutr-PDOC - Dietary Evaluation Malnutrition Findings (Please click <Entered> for more info): Nutritional Asmnt/Malnutrition Start: 06/04/17 10: 21 Text: Status: Complete Freq: Document 06/04/17 10:22 CARLOS (Rec: 06/04/17 10:26 CARLOS ANAYA FN) Nutritional Asmnt/Malnutrition Patient General Information Diagnosis Psychosis Pertinent Medical Hx/Surgical Hx HTN, hypothroidism, psychosis Subjective Information Pt asleep in bed at time of visit Current Diet Order/ Nutrition Support Mechanical soft chopped Pertinent Medications maalox, colace, synthroid, MOM , theragran, neuomycin Pertinent Labs 05/30: Na 131, K 4.3, Cl 103, CO2 25.6, BUN 232, Cr 0.8, Ca 9.6, glucose 87 Nutritional Hx/Data Height 1.78 m Height (Calculated Centimeters) 177.8 Current Weight (lbs) 68.039 kg Weight (Calculated Kilograms) 68.0 Weight (Calculated Grams) 62021.9 Body Mass Index (BMI) 21.5 Weight Status Approriate GI Symptoms GI Symptoms None Last BM none noted Cultural/Ethnic/Jainism Belief None noted Usual diet at home Unable to report by Pt Skin Integrity/Comment: Stuart score 19, intact Estimated Nutritional Goals BEE in Kcals: Using Current wt Calories/Kcals/Kg 25-30kcals/kg Kcals Calculated 1700-2040kcals/day Protein: Using Current wt Protein g/kg/kg Protein Calculated 68kg/day Fluid: ml 1700-2040ml/day (1ml/kcal) Nutritional Problem No current Nutrition Prob Problem No nutrition diagnosis at this time. Intervention/Recommendation Comments Recommend continuing Mechanical soft chopped diet Expected Outcomes/Goals Expected Outcomes/Goals PO intake >75%
[2017-06-09] MEDS: Levothyroxine 0.05 Mg Tab PO SCH (11:56)
[2017-06-10] MEDS: Potassium Chloride 20 mEq ER Tab PO SCH (09:17)
[2017-06-10] MEDS: Multivitamin Tab PO SCH (09:19)
[2017-06-10] MEDS: Levothyroxine 0.05 Mg Tab PO SCH (11:34)
--- NOTE | 2017-06-10 13:22 | Internal Medicine Prog Note ---
Internal Medicine Subjective - Subjective Service Date: 06/10/17 Patient is:: awake Per staff patient has:: tolerating meds Internal Medicine Objective - Results Result Diagrams: 05/30/17 15:00 05/30/17 15:00 Recent Labs: Laboratory Last Values WBC 8.1 Th/cmm (4.8-10.8) 05/30/17 15:00 RBC 3.60 Mil/cmm (3.80-5.80) L 05/30/17 15:00 Hgb 11.1 gm/dL (12-16) L 05/30/17 15:00 Hct 33.5 % (41.0-60) L 05/30/17 15:00 MCV 93.1 fl (80-99) 05/30/17 15:00 MCH 30.7 pg (27.0-31.0) 05/30/17 15:00 MCHC Differential 33.0 pg (28.0-36.0) 05/30/17 15:00 RDW 12.4 % (11.5-20.0) 05/30/17 15:00 Plt Count 218 Th/cmm (150-400) 05/30/17 15:00 MPV 7.2 fl 05/30/17 15:00 Neutrophils % 53.2 % (40.0-80.0) 05/30/17 15:00 Lymphocytes % 38.7 % (20.0-50.0) 05/30/17 15:00 Monocytes % 5.2 % (2.0-10.0) 05/30/17 15:00 Eosinophils % 2.2 % (0.0-5.0) 05/30/17 15:00 Basophils % 0.7 % (0.0-2.0) 05/30/17 15:00 Sodium 131 mEq/L (136-145) L 05/30/17 15:00 Potassium 4.3 mEq/L (3.5-5.1) 05/30/17 15:00 Chloride 102 mEq/L (98-107) 05/30/17 15:00 Carbon Dioxide 25.6 mEq/L (21.0-31.0) 05/30/17 15:00 Anion Gap 7.7 (7.0-16.0) 05/30/17 15:00 BUN 22 mg/dL (7-25) 05/30/17 15:00 Creatinine 0.8 mg/dL (0.7-1.3) 05/30/17 15:00 Est GFR ( Amer) > 60.0 ml/min (>90) 05/30/17 15:00 Est GFR (Non-Af Amer) > 60.0 ml/min 05/30/17 15:00 BUN/Creatinine Ratio 27.5 05/30/17 15:00 Glucose 87 mg/dL (70-105) 05/30/17 15:00 Calcium 9.6 mg/dL (8.6-10.3) 05/30/17 15:00 Total Bilirubin 0.4 mg/dL (0.3-1.0) 05/30/17 15:00 AST 23 U/L (13-39) 05/30/17 15:00 ALT 14 U/L (7-52) 05/30/17 15:00 Alkaline Phosphatase 53 U/L (34-104) 05/30/17 15:00 Total Protein 7.5 gm/dL (6.0-8.3) 05/30/17 15:00 Albumin 4.4 gm/dL (4.2-5.5) 05/30/17 15:00 Globulin 3.1 gm/dL 05/30/17 15:00 Albumin/Globulin Ratio 1.4 (1.0-1.8) 05/30/17 15:00 Urine Source RANDOM 05/30/17 15:00 Urine Color YELLOW 05/30/17 15:00 Urine Clarity CLEAR (CLEAR) 05/30/17 15:00 Urine pH 6.0 (4.6 - 8.0) 05/30/17 15:00 Ur Specific [place] 1.020 (1.005-1.030) 05/30/17 15:00 Urine Protein NEGATIVE mg/dL (NEGATIVE) 05/30/17 15:00 Urine Glucose (UA) NEGATIVE mg/dL (NEGATIVE) 05/30/17 15:00 Urine Ketones NEGATIVE mg/dL (NEGATIVE) 05/30/17 15:00 Urine Blood NEGATIVE (NEGATIVE) 05/30/17 15:00 Urine Nitrate NEGATIVE (NEGATIVE) 05/30/17 15:00 Urine Bilirubin NEGATIVE (NEGATIVE) 05/30/17 15:00 Urine Urobilinogen 0.2 E.U./dL (0.2 - 1.0) 05/30/17 15:00 Ur Leukocyte Esterase NEGATIVE (NEGATIVE) 05/30/17 15:00 Urine RBC 0-2 /hpf (0-5) H 05/30/17 15:00 Urine WBC 0-2 /hpf (0-5) 05/30/17 15:00 Ur Epithelial Cells OCCASIONAL /lpf (FEW) 05/30/17 15:00 Urine Bacteria NONE SEEN /hpf (NONE SEEN) 05/30/17 15:00 - Physical Exam Vitals and I&O: Vital Signs Temp 97.6 F 06/10/17 05:57 Pulse 53 06/10/17 09:18 Resp 20 06/10/17 05:57 BP 118/51 06/10/17 09:18 Pulse Ox 98 06/10/17 05:57 Intake & Output 06/09/17 06/10/17 06/10/17 18:59 06:59 18:59 Intake Total 320 Balance 320 Intake: Oral 320 Other: # Voids 1 Active Medications: Current Medications Acetaminophen (Tylenol) 650 mg PO Q4HR PRN PRN Reason: Mild Pain / Temp above 100 Stop: 07/29/17 21:11 Al Hydrox/Mg Hydrox/Simethicone (Maalox) 30 ml PO Q4HR PRN PRN Reason: GI DISTRESS Stop: 07/29/17 21:11 Bicalutamide (Casodex) 50 mg PO DAILY [facility] PRN Reason: Protocol Stop: 07/30/17 11:59 Last Admin: 06/10/17 09:16 Dose: 50 mg Docusate Sodium (Colace) 100 mg PO BID [facility] Stop: 07/30/17 08:59 Last Admin: 06/10/17 09:18 Dose: 100 mg Latanoprost (Xalatan 0.005% Ophth Soln) 1 drop EACH EYE HS [facility] Stop: 07/30/17 20:59 Last Admin: 06/09/17 21:35 Dose: 1 drop Levothyroxine Sodium (Synthroid) 0.125 mg PO 1130 [facility] Stop: 07/30/17 11:29 Last Admin: 06/09/17 11:56 Dose: 0.125 mg Lorazepam (Ativan) 0.5 mg PO Q4HR PRN; Protocol PRN Reason: anxiety/agitation Stop: 06/29/17 21:11 Last Admin: 06/01/17 06:46 Dose: 0.5 mg Magnesium Hydroxide (Milk Of Magnesia) 30 ml PO HS PRN PRN Reason: Constipation Multivitamins/Vitamin C (Theragran) 1 tab PO DAILY [facility] Stop: 07/30/17 08:59 Last Admin: 06/10/17 09:19 Dose: 1 tab Potassium Chloride (Klor-Con) 20 meq PO DAILY [facility] Stop: 08/04/17 08:59 Last Admin: 06/10/17 09:17 Dose: 20 meq Quetiapine Fumarate (Seroquel) 50 mg PO BID [facility] PRN Reason: Protocol Stop: 08/08/17 06:41 Last Admin: 06/10/17 09:20 Dose: 50 mg Valsartan (Diovan) 80 mg PO Q12H [facility] Stop: 07/29/17 21:29 Last Admin: 06/10/17 09:18 Dose: 80 mg Zolpidem Tartrate (Ambien) 5 mg PO HS PRN PRN Reason: Insomnia Stop: 07/29/17 21:11 Last Admin: 06/05/17 21:04 Dose: 5 mg General: alert HEENT: NC/AT, PERRLA Neck: Supple Lungs: CTAB Cardiovascular: RRR, Normal S1, Normal S2 Abdomen: soft, non-tender, non-distended, positive bowel sound Neurological: alert Internal Medicine Assmt/Plan - Assessment Assessment: Current Active Problems Problem Status Onset INCREASED AGITATION AND COMBATIVENESS Acute hypothyroidism htn - Plan Plan: continue current orders Nutritional Asmnt/Malnutr-PDOC - Dietary Evaluation Malnutrition Findings (Please click <Entered> for more info): Nutritional Asmnt/Malnutrition Start: 06/04/17 10: 21 Text: Status: Complete Freq: Document 06/04/17 10:22 CARLOS (Rec: 06/04/17 10:26 [facility] Nutritional Asmnt/Malnutrition Patient General Information Diagnosis Psychosis Pertinent Medical Hx/Surgical Hx HTN, hypothroidism, psychosis Subjective Information Pt asleep in bed at time of visit Current Diet Order/ Nutrition Support Mechanical soft chopped Pertinent Medications maalox, colace, synthroid, MOM , theragran, neuomycin Pertinent Labs 05/30: Na 131, K 4.3, Cl 103, CO2 25.6, BUN 232, Cr 0.8, Ca 9.6, glucose 87 Nutritional Hx/Data Height 5 ft 10 in Height (Calculated Centimeters) 177.8 Current Weight (lbs) 150 lb Weight (Calculated Kilograms) 68.0 Weight (Calculated Grams) 68485.9 Body Mass Index (BMI) 21.5 Weight Status Approriate GI Symptoms GI Symptoms None Last BM none noted Cultural/Ethnic/Yarsanism Belief None noted Usual diet at home Unable to report by Pt Skin Integrity/Comment: Stuart score 19, intact Estimated Nutritional Goals BEE in Kcals: Using Current wt Calories/Kcals/Kg 25-30kcals/kg Kcals Calculated 1700-2040kcals/day Protein: Using Current wt Protein g/kg/kg Protein Calculated 68kg/day Fluid: ml 1700-2040ml/day (1ml/kcal) Nutritional Problem No current Nutrition Prob Problem No nutrition diagnosis at this time. Intervention/Recommendation Comments Recommend continuing Mechanical soft chopped diet Expected Outcomes/Goals Expected Outcomes/Goals PO intake >75%
--- NOTE | 2017-06-11 08:36 | Progress Notes ---
DATE: 06/11/2017 SUBJECTIVE: The patient was seen in the hallway sitting in a Malina chair, having breakfast. The patient appears to be calm at this time, but has episodes of agitation according to nurses. Otherwise, the patient appears to be in no acute distress. OBJECTIVE: VITAL SIGNS: Temperature 97.2, heart rate of 64, blood pressure 116/63, respirations of 18, and 98% on room air. HEENT: Head is atraumatic and normocephalic. Eyes: Bilateral conjunctivae are clear. Bilaterally pupils equally round, reactive. NECK: Supple. No JVD. CARDIOVASCULAR: S1 and S2, without murmur. PULMONARY: Clear to auscultation. GASTROINTESTINAL: Soft and nontender without guarding. Positive bowel sounds. MUSCULOSKELETAL: No clubbing. No cyanosis noted. ASSESSMENT: 1. Dementia. 2. Hypertension. 3. Hypothyroidism. 4. Glaucoma. 5. Hypertension. PLAN: We will keep the patient inpatient. We will followup with the psychiatrist to monitor the patient's condition and behavior. Treatment plans were discussed with the patient's nurse. Treatment plans were discussed with Dr. Chauhan. JOB# [id number]
[2017-06-11] MEDS: Multivitamin Tab PO SCH (09:15)
[2017-06-11] MEDS: Potassium Chloride 20 mEq ER Tab PO SCH (09:16)
[2017-06-11] MEDS: Levothyroxine 0.05 Mg Tab PO SCH (11:55)
--- NOTE | 2017-06-12 02:21 | Progress Notes ---
DATE: 06/11/2017 SUBJECTIVE: A 67-year-old male transferred from [facility] for aggressive behaviors, agitated behaviors, hitting and striking at staff, striking out at patients. The patient noted to be angry, irritable. The patient stating today he feels " alright," "no problems," not really want to talk to me, noted to be irritable, isolative, selective with information. Dr. King seeing the patient over the past few days, noting he still remains confused, disoriented, suspicious, evidence of psychosis, but in general more cooperative. Sleeping fairly well, eating with some prompting. ASSESSMENT: The patient remains somewhat confused, disoriented, refusing to speak with me today. Essentially tolerant to medications. Currently on Seroquel. PLAN: We will continue to monitor given his ongoing symptoms. He is not safe for discharge at this time. He cannot be cared for at a lower level of care. [facility]# [id number]
[2017-06-12] MEDS: Multivitamin Tab PO SCH (09:07)
[2017-06-12] MEDS: Potassium Chloride 20 mEq ER Tab PO SCH (09:08)
[2017-06-12] MEDS: Levothyroxine 0.05 Mg Tab PO SCH (11:06)
--- NOTE | 2017-06-12 11:18 | General Progress Note ---
Subjective - Review of Systems Events since last encounter: patient awake alert, seems comfortable Objective - Results Result Diagrams: 05/30/17 15:00 05/30/17 15:00 Recent Labs: Laboratory Last Values WBC 8.1 Th/cmm (4.8-10.8) 05/30/17 15:00 RBC 3.60 Mil/cmm (3.80-5.80) L 05/30/17 15:00 Hgb 11.1 gm/dL (12-16) L 05/30/17 15:00 Hct 33.5 % (41.0-60) L 05/30/17 15:00 MCV 93.1 fl (80-99) 05/30/17 15:00 MCH 30.7 pg (27.0-31.0) 05/30/17 15:00 MCHC Differential 33.0 pg (28.0-36.0) 05/30/17 15:00 RDW 12.4 % (11.5-20.0) 05/30/17 15:00 Plt Count 218 Th/cmm (150-400) 05/30/17 15:00 MPV 7.2 fl 05/30/17 15:00 Neutrophils % 53.2 % (40.0-80.0) 05/30/17 15:00 Lymphocytes % 38.7 % (20.0-50.0) 05/30/17 15:00 Monocytes % 5.2 % (2.0-10.0) 05/30/17 15:00 Eosinophils % 2.2 % (0.0-5.0) 05/30/17 15:00 Basophils % 0.7 % (0.0-2.0) 05/30/17 15:00 Sodium 131 mEq/L (136-145) L 05/30/17 15:00 Potassium 4.3 mEq/L (3.5-5.1) 05/30/17 15:00 Chloride 102 mEq/L (98-107) 05/30/17 15:00 Carbon Dioxide 25.6 mEq/L (21.0-31.0) 05/30/17 15:00 Anion Gap 7.7 (7.0-16.0) 05/30/17 15:00 BUN 22 mg/dL (7-25) 05/30/17 15:00 Creatinine 0.8 mg/dL (0.7-1.3) 05/30/17 15:00 Est GFR ( Amer) > 60.0 ml/min (>90) 05/30/17 15:00 Est GFR (Non-Af Amer) > 60.0 ml/min 05/30/17 15:00 BUN/Creatinine Ratio 27.5 05/30/17 15:00 Glucose 87 mg/dL (70-105) 05/30/17 15:00 Calcium 9.6 mg/dL (8.6-10.3) 05/30/17 15:00 Total Bilirubin 0.4 mg/dL (0.3-1.0) 05/30/17 15:00 AST 23 U/L (13-39) 05/30/17 15:00 ALT 14 U/L (7-52) 05/30/17 15:00 Alkaline Phosphatase 53 U/L (34-104) 05/30/17 15:00 Total Protein 7.5 gm/dL (6.0-8.3) 05/30/17 15:00 Albumin 4.4 gm/dL (4.2-5.5) 05/30/17 15:00 Globulin 3.1 gm/dL 05/30/17 15:00 Albumin/Globulin Ratio 1.4 (1.0-1.8) 05/30/17 15:00 Urine Source RANDOM 05/30/17 15:00 Urine Color YELLOW 05/30/17 15:00 Urine Clarity CLEAR (CLEAR) 05/30/17 15:00 Urine pH 6.0 (4.6 - 8.0) 05/30/17 15:00 Ur Specific [place] 1.020 (1.005-1.030) 05/30/17 15:00 Urine Protein NEGATIVE mg/dL (NEGATIVE) 05/30/17 15:00 Urine Glucose (UA) NEGATIVE mg/dL (NEGATIVE) 05/30/17 15:00 Urine Ketones NEGATIVE mg/dL (NEGATIVE) 05/30/17 15:00 Urine Blood NEGATIVE (NEGATIVE) 05/30/17 15:00 Urine Nitrate NEGATIVE (NEGATIVE) 05/30/17 15:00 Urine Bilirubin NEGATIVE (NEGATIVE) 05/30/17 15:00 Urine Urobilinogen 0.2 E.U./dL (0.2 - 1.0) 05/30/17 15:00 Ur Leukocyte Esterase NEGATIVE (NEGATIVE) 05/30/17 15:00 Urine RBC 0-2 /hpf (0-5) H 05/30/17 15:00 Urine WBC 0-2 /hpf (0-5) 05/30/17 15:00 Ur Epithelial Cells OCCASIONAL /lpf (FEW) 05/30/17 15:00 Urine Bacteria NONE SEEN /hpf (NONE SEEN) 05/30/17 15:00 - Physical Exam Vitals and I&O: Vital Signs Temp 97.7 F 06/12/17 06:42 Pulse 76 06/12/17 09:10 Resp 20 06/12/17 06:42 BP 100/64 06/12/17 09:10 Pulse Ox 98 06/12/17 06:42 Intake & Output 06/11/17 06/12/17 06/12/17 18:59 06:59 18:59 Intake Total 1200 480 Balance 1200 480 Intake: Oral 1200 480 Other: # Voids 3 1 Active Medications: Current Medications Acetaminophen (Tylenol) 650 mg PO Q4HR PRN PRN Reason: Mild Pain / Temp above 100 Stop: 07/29/17 21:11 Al Hydrox/Mg Hydrox/Simethicone (Maalox) 30 ml PO Q4HR PRN PRN Reason: GI DISTRESS Stop: 07/29/17 21:11 Bicalutamide (Casodex) 50 mg PO DAILY [facility] PRN Reason: Protocol Stop: 07/30/17 11:59 Last Admin: 06/12/17 09:08 Dose: 50 mg Docusate Sodium (Colace) 100 mg PO BID [facility] Stop: 07/30/17 08:59 Last Admin: 06/12/17 09:08 Dose: 100 mg Latanoprost (Xalatan 0.005% Ophth Soln) 1 drop EACH EYE HS [facility] Stop: 07/30/17 20:59 Last Admin: 06/11/17 21:24 Dose: 1 drop Levothyroxine Sodium (Synthroid) 0.125 mg PO 1130 [facility] Stop: 07/30/17 11:29 Last Admin: 06/11/17 11:55 Dose: 0.125 mg Lorazepam (Ativan) 0.5 mg PO Q4HR PRN; Protocol PRN Reason: anxiety/agitation Stop: 06/29/17 21:11 Last Admin: 06/01/17 06:46 Dose: 0.5 mg Magnesium Hydroxide (Milk Of Magnesia) 30 ml PO HS PRN PRN Reason: Constipation Multivitamins/Vitamin C (Theragran) 1 tab PO DAILY [facility] Stop: 07/30/17 08:59 Last Admin: 06/12/17 09:07 Dose: 1 tab Potassium Chloride (Klor-Con) 20 meq PO DAILY [facility] Stop: 08/04/17 08:59 Last Admin: 06/12/17 09:08 Dose: 20 meq Quetiapine Fumarate (Seroquel) 50 mg PO BID [facility] PRN Reason: Protocol Stop: 08/08/17 06:41 Last Admin: 06/12/17 09:08 Dose: 50 mg Valsartan (Diovan) 80 mg PO Q12H [facility] Stop: 07/29/17 21:29 Last Admin: 06/12/17 09:10 Dose: 80 mg Zolpidem Tartrate (Ambien) 5 mg PO HS PRN PRN Reason: Insomnia Stop: 07/29/17 21:11 Last Admin: 06/11/17 21:26 Dose: 5 mg General: No acute distress HEENT: Atraumatic Neck: Supple, JVD Cardiovascular: Regular rate, Normal S1, Normal S2 Abdomen: Bowel sounds Assessment/Plan - Problem List Patient Problems: All Active Problems HTN (hypertension) (Acute) I10 Hypothyroidism (Acute) E03.9 INCREASED AGITATION AND COMBATIVENESS (Acute) - Plan Plan: cpm Nutritional Asmnt/Malnutr-PDOC - Dietary Evaluation Malnutrition Findings (Please click <Entered> for more info): Nutritional Asmnt/Malnutrition Start: 06/04/17 10: 21 Text: Status: Complete Freq: Document 06/04/17 10:22 CARLOS (Rec: 06/04/17 10:26 CARLOS JACLYN FN) Nutritional Asmnt/Malnutrition Patient General Information Diagnosis Psychosis Pertinent Medical Hx/Surgical Hx HTN, hypothroidism, psychosis Subjective Information Pt asleep in bed at time of visit Current Diet Order/ Nutrition Support Mechanical soft chopped Pertinent Medications maalox, colace, synthroid, MOM , theragran, neuomycin Pertinent Labs 05/30: Na 131, K 4.3, Cl 103, CO2 25.6, BUN 232, Cr 0.8, Ca 9.6, glucose 87 Nutritional Hx/Data Height 1.78 m Height (Calculated Centimeters) 177.8 Current Weight (lbs) 68.039 kg Weight (Calculated Kilograms) 68.0 Weight (Calculated Grams) 17656.9 Body Mass Index (BMI) 21.5 Weight Status Approriate GI Symptoms GI Symptoms None Last BM none noted Cultural/Ethnic/Taoist Belief None noted Usual diet at home Unable to report by Pt Skin Integrity/Comment: Stuart score 19, intact Estimated Nutritional Goals BEE in Kcals: Using Current wt Calories/Kcals/Kg 25-30kcals/kg Kcals Calculated 1700-2040kcals/day Protein: Using Current wt Protein g/kg/kg Protein Calculated 68kg/day Fluid: ml 1700-2040ml/day (1ml/kcal) Nutritional Problem No current Nutrition Prob Problem No nutrition diagnosis at this time. Intervention/Recommendation Comments Recommend continuing Mechanical soft chopped diet Expected Outcomes/Goals Expected Outcomes/Goals PO intake >75%
--- NOTE | 2017-06-12 17:33 | Progress Notes ---
DATE: 06/12/2017 SUBJECTIVE: The patient in the hospital, irritability, agitation and aggressive behavior, hitting and striking others. The patient has been somewhat calmer on exam, more sociable, more engaged; however, does not really know why he is in the hospital. He is not a very good historian. He is pretty irritable on exam, nonchalant, does not want to talk to me stating that he has clinical no problems. The patient with poor insight. 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 MEDICATIONS: Noted. ASSESSMENT: The patient remains somewhat disoriented, saying very little to me today and not the best historian, still remains impulsive and unpredictable, but somewhat calmer versus initial presentation. The patient states that he has no place to go and he has no verbalizations or plans for basic food, clothing and retirement. PLAN: We will monitor and followup. The patient to follow up with Dr. King in the morning. JOB# [id number]
--- NOTE | 2017-06-12 17:40 | Progress Notes ---
DATE: 06/10/2017 SUBJECTIVE: Chart reviewed and the patient interviewed. Also discussed the patient's condition with the staff and reviewed records and labs. The patient is still confused and is still agitated. He also still needs lots of redirections. On the other hand, the patient continued to comply with taking his medications, with no side effect of medications. ASSESSMENT: The patient still needs close observation. TREATMENT PLAN: Continue to monitor behavior and condition closely. Also, we will continue Seroquel 50 mg twice a day and we will continue to follow up. JOB# [id number]
--- NOTE | 2017-06-12 17:41 | Progress Notes ---
DATE: SUBJECTIVE: Chart reviewed. The patient interviewed. Also discussed the patient's condition with the staff and reviewed records and labs. The patient continued to be confused and in irritable mood. Also, is still easily agitated. The patient also still seems to be suspicious and paranoid. He also needs close monitoring and close observation. Otherwise, the patient is compliant with taking Seroquel with no side effect. ASSESSMENT: The patient is still psychotic and is still agitated. TREATMENT PLAN: We will continue monitoring his behavior and his condition closely. Also, continue Seroquel 50 mg twice a day and continue to follow up. JOB# [id number]
[2017-06-13] MEDS: Potassium Chloride 20 mEq ER Tab PO SCH (09:23)
[2017-06-13] MEDS: Multivitamin Tab PO SCH (09:23)
--- NOTE | 2017-06-13 11:31 | General Progress Note ---
Subjective - Review of Systems Service Date: 06/13/17 Subjective: pt is agitated denies pain Objective - Results Result Diagrams: 05/30/17 15:00 05/30/17 15:00 Recent Labs: Laboratory Last Values WBC 8.1 Th/cmm (4.8-10.8) 05/30/17 15:00 RBC 3.60 Mil/cmm (3.80-5.80) L 05/30/17 15:00 Hgb 11.1 gm/dL (12-16) L 05/30/17 15:00 Hct 33.5 % (41.0-60) L 05/30/17 15:00 MCV 93.1 fl (80-99) 05/30/17 15:00 MCH 30.7 pg (27.0-31.0) 05/30/17 15:00 MCHC Differential 33.0 pg (28.0-36.0) 05/30/17 15:00 RDW 12.4 % (11.5-20.0) 05/30/17 15:00 Plt Count 218 Th/cmm (150-400) 05/30/17 15:00 MPV 7.2 fl 05/30/17 15:00 Neutrophils % 53.2 % (40.0-80.0) 05/30/17 15:00 Lymphocytes % 38.7 % (20.0-50.0) 05/30/17 15:00 Monocytes % 5.2 % (2.0-10.0) 05/30/17 15:00 Eosinophils % 2.2 % (0.0-5.0) 05/30/17 15:00 Basophils % 0.7 % (0.0-2.0) 05/30/17 15:00 Sodium 131 mEq/L (136-145) L 05/30/17 15:00 Potassium 4.3 mEq/L (3.5-5.1) 05/30/17 15:00 Chloride 102 mEq/L (98-107) 05/30/17 15:00 Carbon Dioxide 25.6 mEq/L (21.0-31.0) 05/30/17 15:00 Anion Gap 7.7 (7.0-16.0) 05/30/17 15:00 BUN 22 mg/dL (7-25) 05/30/17 15:00 Creatinine 0.8 mg/dL (0.7-1.3) 05/30/17 15:00 Est GFR ( Amer) > 60.0 ml/min (>90) 05/30/17 15:00 Est GFR (Non-Af Amer) > 60.0 ml/min 05/30/17 15:00 BUN/Creatinine Ratio 27.5 05/30/17 15:00 Glucose 87 mg/dL (70-105) 05/30/17 15:00 Calcium 9.6 mg/dL (8.6-10.3) 05/30/17 15:00 Total Bilirubin 0.4 mg/dL (0.3-1.0) 05/30/17 15:00 AST 23 U/L (13-39) 05/30/17 15:00 ALT 14 U/L (7-52) 05/30/17 15:00 Alkaline Phosphatase 53 U/L (34-104) 05/30/17 15:00 Total Protein 7.5 gm/dL (6.0-8.3) 05/30/17 15:00 Albumin 4.4 gm/dL (4.2-5.5) 05/30/17 15:00 Globulin 3.1 gm/dL 05/30/17 15:00 Albumin/Globulin Ratio 1.4 (1.0-1.8) 05/30/17 15:00 Urine Source RANDOM 05/30/17 15:00 Urine Color YELLOW 05/30/17 15:00 Urine Clarity CLEAR (CLEAR) 05/30/17 15:00 Urine pH 6.0 (4.6 - 8.0) 05/30/17 15:00 Ur Specific [place] 1.020 (1.005-1.030) 05/30/17 15:00 Urine Protein NEGATIVE mg/dL (NEGATIVE) 05/30/17 15:00 Urine Glucose (UA) NEGATIVE mg/dL (NEGATIVE) 05/30/17 15:00 Urine Ketones NEGATIVE mg/dL (NEGATIVE) 05/30/17 15:00 Urine Blood NEGATIVE (NEGATIVE) 05/30/17 15:00 Urine Nitrate NEGATIVE (NEGATIVE) 05/30/17 15:00 Urine Bilirubin NEGATIVE (NEGATIVE) 05/30/17 15:00 Urine Urobilinogen 0.2 E.U./dL (0.2 - 1.0) 05/30/17 15:00 Ur Leukocyte Esterase NEGATIVE (NEGATIVE) 05/30/17 15:00 Urine RBC 0-2 /hpf (0-5) H 05/30/17 15:00 Urine WBC 0-2 /hpf (0-5) 05/30/17 15:00 Ur Epithelial Cells OCCASIONAL /lpf (FEW) 05/30/17 15:00 Urine Bacteria NONE SEEN /hpf (NONE SEEN) 05/30/17 15:00 - Physical Exam Vitals and I&O: Vital Signs Temp 98.3 F 06/13/17 06:07 Pulse 71 06/13/17 09:23 Resp 20 06/13/17 08:00 BP 128/69 06/13/17 09:23 Pulse Ox 99 06/13/17 06:07 Intake & Output 06/12/17 06/13/17 06/13/17 18:59 06:59 18:59 Intake Total 540 480 Balance 540 480 Intake: Oral 540 480 Other: # Voids 2 1 Active Medications: Current Medications Acetaminophen (Tylenol) 650 mg PO Q4HR PRN PRN Reason: Mild Pain / Temp above 100 Stop: 07/29/17 21:11 Al Hydrox/Mg Hydrox/Simethicone (Maalox) 30 ml PO Q4HR PRN PRN Reason: GI DISTRESS Stop: 07/29/17 21:11 Bicalutamide (Casodex) 50 mg PO DAILY BILLIE PRN Reason: Protocol Stop: 07/30/17 11:59 Last Admin: 06/12/17 09:08 Dose: 50 mg Docusate Sodium (Colace) 100 mg PO BID BILLIE Stop: 07/30/17 08:59 Last Admin: 06/13/17 09:24 Dose: 100 mg Latanoprost (Xalatan 0.005% Ophth Soln) 1 drop EACH EYE HS BILLIE Stop: 07/30/17 20:59 Last Admin: 06/12/17 21:22 Dose: 1 drop Levothyroxine Sodium (Synthroid) 0.125 mg PO 1130 BILLIE Stop: 07/30/17 11:29 Last Admin: 06/12/17 11:06 Dose: 0.125 mg Lorazepam (Ativan) 0.5 mg PO Q4HR PRN; Protocol PRN Reason: anxiety/agitation Stop: 06/29/17 21:11 Last Admin: 06/01/17 06:46 Dose: 0.5 mg Magnesium Hydroxide (Milk Of Magnesia) 30 ml PO HS PRN PRN Reason: Constipation Multivitamins/Vitamin C (Theragran) 1 tab PO DAILY [facility] Stop: 07/30/17 08:59 Last Admin: 06/13/17 09:23 Dose: 1 tab Potassium Chloride (Klor-Con) 20 meq PO DAILY BILLIE Stop: 08/04/17 08:59 Last Admin: 06/13/17 09:23 Dose: 20 meq Quetiapine Fumarate (Seroquel) 75 mg PO BID BILLIE PRN Reason: Protocol Stop: 08/12/17 08:59 Last Admin: 06/13/17 09:23 Dose: 75 mg Valsartan (Diovan) 80 mg PO Q12H [facility] Stop: 07/29/17 21:29 Last Admin: 06/13/17 09:23 Dose: 80 mg Zolpidem Tartrate (Ambien) 5 mg PO HS PRN PRN Reason: Insomnia Stop: 07/29/17 21:11 Last Admin: 06/11/17 21:26 Dose: 5 mg General: No acute distress HEENT: Atraumatic Neck: Supple, JVD Cardiovascular: Regular rate, Normal S1, Normal S2 Abdomen: Bowel sounds Assessment/Plan - Problem List Patient Problems: All Active Problems HTN (hypertension) (Acute) I10 Hypothyroidism (Acute) E03.9 INCREASED AGITATION AND COMBATIVENESS (Acute) - Plan Plan: cpm Nutritional Asmnt/Malnutr-PDOC - Dietary Evaluation Malnutrition Findings (Please click <Entered> for more info): Nutritional Asmnt/Malnutrition Start: 06/04/17 10: 21 Text: Status: Complete Freq: Document 06/04/17 10:22 CARLOS (Rec: 06/04/17 10:26 [email or web address] Nutritional Asmnt/Malnutrition Patient General Information Diagnosis Psychosis Pertinent Medical Hx/Surgical Hx HTN, hypothroidism, psychosis Subjective Information Pt asleep in bed at time of visit Current Diet Order/ Nutrition Support Mechanical soft chopped Pertinent Medications maalox, colace, synthroid, MOM , theragran, neuomycin Pertinent Labs 05/30: Na 131, K 4.3, Cl 103, CO2 25.6, BUN 232, Cr 0.8, Ca 9.6, glucose 87 Nutritional Hx/Data Height 1.78 m Height (Calculated Centimeters) 177.8 Current Weight (lbs) 68.039 kg Weight (Calculated Kilograms) 68.0 Weight (Calculated Grams) 01448.9 Body Mass Index (BMI) 21.5 Weight Status Approriate GI Symptoms GI Symptoms None Last BM none noted Cultural/Ethnic/Yarsanism Belief None noted Usual diet at home Unable to report by Pt Skin Integrity/Comment: Stuart score 19, intact Estimated Nutritional Goals BEE in Kcals: Using Current wt Calories/Kcals/Kg 25-30kcals/kg Kcals Calculated 1700-2040kcals/day Protein: Using Current wt Protein g/kg/kg Protein Calculated 68kg/day Fluid: ml 1700-2040ml/day (1ml/kcal) Nutritional Problem No current Nutrition Prob Problem No nutrition diagnosis at this time. Intervention/Recommendation Comments Recommend continuing Mechanical soft chopped diet Expected Outcomes/Goals Expected Outcomes/Goals PO intake >75%
[2017-06-13] MEDS: Levothyroxine 0.05 Mg Tab PO SCH (16:53)
[2017-06-14] MEDS: Multivitamin Tab PO SCH (09:59)
[2017-06-14] MEDS: Potassium Chloride 20 mEq ER Tab PO SCH (10:00)
== END 2017-06-14 18:15 | DRG 885 ==
LOC: ER 12:18 → GERO2 19:22
PROVIDERS: ADMIT Psychiatry & Neurology Psychiatry; ATTEND Psychiatry & Neurology Psychiatry
DX: F29 Unspecified psychosis not due to a substance or known physiological condition (principal); F02.81 Dementia in other diseases classified elsewhere, unspecified severity, with behavioral disturbance; G30.9 Alzheimer's disease, unspecified; I10 Essential (primary) hypertension; E03.9 Hypothyroidism, unspecified; E78.5 Hyperlipidemia, unspecified; H40.9 Unspecified glaucoma; Z87.891 Personal history of nicotine dependence
CPT/HCPCS: 36415-UA; 80053-TC; 81001-TC; 85025-TC; 90899; 93005; G0410; J9999; Z7610